=== PATIENT | male | born 1995 | race American Indian/Alaskan Native ===

== ENCOUNTER 2017-05-26 13:50 | Inpatient (IN) | payer OTHER ==
[2017-05-26 15:02] LABS: Anion Gap 14 mmol/L; BUN/Creatinine Ratio 14.28; Blood Urea Nitrogen 10 mg/dL (9-20); Calcium 8.5 mg/dL (8.4-10.2); Carbon Dioxide 23 mmol/L (22-30); Chloride 97.2 mmol/L (98-107); Glucose 115 mg/dL (75-100); Potassium 4.1 mmol/L (3.6-5.0); Sodium 130 mmol/L (137-145)
[2017-05-26 15:37] LABS: Red Blood Count 1.84 M/mm3 (3.65-5.03); White Blood Count 6.2 K/mm3 (4.5-11.0)
[2017-05-26 15:39] LABS: Hemoglobin 2.8 gm/dl (11.8-15.2)
[2017-05-26 15:42] LABS: Hematocrit 10.1 % (35.5-45.6); Mean Corpuscular HGB Conc 27 % (32-34); Mean Corpuscular Hemoglobin 15 pg (28-32); Mean Corpuscular Volume 55 fl (84-94)
[2017-05-26 15:43] LABS: Platelet Count 393 K/mm3 (140-440); Red Cell Distribution Width 21.8 % (13.2-15.2)
[2017-05-26] MEDS ORDERED: NACL 0.9% 500 ML 500 ML IV ONE ×2 (15:47→20:15)
[2017-05-26] MEDS ORDERED: NACL 0.9% 1000 ML 1,000 ML IV ONE (15:52)
--- NOTE | 2017-05-26 15:55 | Emergency Department Report ---
ED General Adult HPI - General Chief complaint: Rectal Pain Stated complaint: ANAL PAIN Time Seen by Provider: 05/26/17 15:48 Source: patient Mode of arrival: Ambulatory Limitations: No Limitations - History of Present Illness Initial comments: 22-year-old male with past medical history of HIV diagnosed when he was 17 and loss of follow-up, presents to the ED complaining of lower abdominal pain, anal pain, generalized weakness and fatigue. Patient states symptoms started approximately 1 week prior with anal pain with defecation. Patient denies anal bleeding. Patient denies appreciating anal masses. She states intermittently has a dull pain pelvic area that intermittent no relaxing or worsening factors. She also states he's been having generalized shortness of breath with exertion and generalized fatigue. Pertinent negatives: Fever/chills, chest pain , hemoptysis, nausea/vomiting/diarrhea, black stools, maroon stools, bloody stools. -: Gradual, week(s) (1) Location: abdomen Radiation: non-radiation Severity scale (0 -10): 4 Consistency: intermittent Improves with: none Worsens with: other (bowel movement ) Associated Symptoms: loss of appetite, malaise. denies: confusion, chest pain, cough, diaphoresis, nausea/vomiting, rash, seizure, shortness of breath, syncope - Related Data Home Medications Medication Instructions Recorded Confirmed Last Taken No Known Home Medications [No 05/26/17 05/26/17 Unknown Reported Home Medications] Allergies Allergy/AdvReac Type Severity Reaction Status Date / Time No Known Allergies Allergy Unverified 05/26/17 14:03 ED Review of Systems ROS: Stated complaint: ANAL PAIN Other details as noted in HPI Constitutional: malaise, weakness. denies: chills, fever Eyes: denies: eye pain, eye discharge, vision change ENT: denies: ear pain, throat pain Respiratory: denies: cough, shortness of breath, wheezing Cardiovascular: denies: chest pain, palpitations Endocrine: no symptoms reported Gastrointestinal: abdominal pain. denies: nausea, vomiting, diarrhea, constipation, hematemesis, hematochezia Genitourinary: denies: urgency, dysuria, frequency, hematuria, testicular pain, testicular mass Musculoskeletal: denies: back pain, joint swelling, arthralgia Skin: denies: rash, lesions Neurological: denies: headache, weakness, paresthesias Psychiatric: denies: anxiety, depression Hematological/Lymphatic: denies: easy bleeding, easy bruising ED Past Medical Hx - Past Medical History Previous Medical History?: Yes Hx HIV: Yes - Surgical History Past Surgical History?: No - Social History Smoking Status: Current Every Day Smoker Substance Use Type: Alcohol - Medications Home Medications: Home Medications Medication Instructions Recorded Confirmed Last Taken Type No Known Home Medications [No 05/26/17 05/26/17 Unknown History Reported Home Medications] ED Physical Exam - General Limitations: No Limitations ED Course Vital Signs 05/26/17 05/26/17 05/26/17 13:58 15:47 16:00 Temperature 98.8 F Pulse Rate 125 H 89 106 H Respiratory 16 14 14 Rate Blood Pressure 97/52 118/73 O2 Sat by Pulse 100 100 98 Oximetry 05/26/17 05/26/17 05/26/17 16:09 16:15 16:30 Temperature Pulse Rate 127 H 103 H Respiratory 16 18 16 Rate Blood Pressure 116/68 105/66 O2 Sat by Pulse 99 100 97 Oximetry 05/26/17 05/26/17 05/26/17 16:45 17:00 17:10 Temperature 98.7 F Pulse Rate 111 H 105 H 105 H Respiratory 20 19 16 Rate Blood Pressure 115/70 119/64 119/64 O2 Sat by Pulse 94 100 99 Oximetry 05/26/17 05/26/17 05/26/17 17:25 17:29 17:30 Temperature 98.7 F Pulse Rate 100 H 100 H Respiratory 18 18 16 Rate Blood Pressure 117/71 121/71 O2 Sat by Pulse 100 100 Oximetry 05/26/17 05/26/17 05/26/17 17:55 17:59 18:08 Temperature 98.6 F 98.6 F Pulse Rate 100 H 107 H Respiratory 13 13 13 Rate Blood Pressure 110/65 110/65 O2 Sat by Pulse 100 100 Oximetry 05/26/17 05/26/17 05/26/17 18:23 18:30 19:27 Temperature 98.5 F Pulse Rate 104 H 100 H Respiratory 16 20 Rate Blood Pressure 110/65 118/73 118/63 O2 Sat by Pulse 100 100 Oximetry 05/26/17 05/26/17 19:45 20:15 Temperature 98 F 98 F Pulse Rate 108 H 107 H Respiratory 20 18 Rate Blood Pressure 105/52 106/66 O2 Sat by Pulse 100 99 Oximetry - Reevaluation(s) Reevaluation #1: 05/26/17 15:55 Patient comfortable, getting 2 large bore IVs. Reevaluation #2: 05/26/17 17:10 Dr. Khoury gastroenterology states he'll see patient during his admission Reevaluation #3: 05/26/17 18:30 Patient resting with no complaints. Reevaluation #4: 05/26/17 20:08 GI doctor which hasn't consult given the reports of CT abdomen and pelvis. He is concerned that given patient's untreated HIV he may have Eduin Martinez in the duodenum. Differential also includes lymphoma, ulcer. He recommends IR consult- and he states he will call Dr Cary and IR group gen surgery - who I will call Reevaluation #5: 05/26/17 21:37 A oakes stable without any complaints. Dr. carlin has informed IR of patient, they are on an bifrontal embolization if needed. Dr. Peralta plans to scope patient ( upper endoscopy) in the a.m. ED Medical Decision Making - Lab Data Result diagrams: 05/26/17 15:18 05/26/17 14:30 - EKG Data -: EKG Interpreted by Me EKG shows normal: sinus rhythm (104), axis (normal ), intervals (ATC 433) Rate: normal - EKG Data When compared to previous EKG there are: previous EKG unavailable Interpretation: other (sinus tachycardia) - Medical Decision Making 22-year-old male with past medical history of HIV presented to the ED with anemia, tachycardia. 1) Anemia Clinically secondary GI bleed. Patient has been transfused packed red blood cells, and FFP. Patient's digital rectal exam had light brown stool that was guaiac positive. No hematochezia or maroon stools noted. Patient has told me that he remembers now that he has had similar symptoms in the past however they're unable to tell him what was the source of his bleed. Consults: GI Dr Licea who has seen pt in ED, Gen Surgery, IR - Differential Diagnosis perforated ulcer, IBD Critical care attestation.: If time is entered above; I have spent that time in minutes in the direct care of this critically ill patient, excluding procedure time. Critical Care Time: 60 min of cc spent at bedside spent talking to patient and consult ED Disposition Clinical Impression: GI bleeding, Tachycardia, Anemia Disposition: PAT REG,NO TRIAGE Is pt being admited?: Yes Does the pt Need Aspirin: No Condition: Stable Referrals: PRIMARY CARE,MD [Primary Care Provider] - 3-5 Days
[2017-05-26 16:47] LABS: INR 1.11 (0.87-1.13)
[2017-05-26 16:48] LABS: Partial Thromboplastin Time 28.1 Sec. (24.2-36.6)
[2017-05-26] MEDS ORDERED: ZOFRAN IV ONE (17:26)
[2017-05-26] MEDS ORDERED: MORPHINE IV ONE (17:26)
[2017-05-26] MEDS ORDERED: ZOFRAN ONE (17:27)
[2017-05-26 17:28] LABS: Blastocytes % (Manual) 0 %
[2017-05-26 17:29] LABS: Anisocytosis 2+; Basophils % (Manual) 0 % (0.0-1.8); Eosinophils % (Manual) 0 % (0.0-4.3); Microcytosis 3+
[2017-05-26 17:30] LABS: Hypochromasia 3+; Ovalocytes 1+; Polychromasia Few
[2017-05-26 17:31] LABS: Giant Platelets Few; Large Platelets Few; Platelet Estimate Consistent w Auto; Target Cells Few
[2017-05-26 17:33] LABS: Diff Status Complete
[2017-05-26] MEDS ORDERED: NACL ONE (18:05)
--- NOTE | 2017-05-26 18:48 | Admit Criteria Form ---
Admission Criteria Documentation: ANEMIA, IRON DEFICIENCY OR UNSPECIFIED Clinical Indications for Inpatient Care (Place 'X' for any and all applicable criteria): Admission is indicated for ANY ONE of the following(1)(2)(3)(4)(5)(6)(7): [X] I. Inpatient admission required rather than observation care (Also use Anemia, Iron Deficiency or Unspecified: Observation Care guideline as appropriate) because of ANY ONE of the following: [] a) Hemodynamic instability that is severe or persistent [] b) Active bleeding that cannot be rapidly controlled [] c) CVS symptoms (i.e., dyspnea, chest pain, heart failure) that are severe or persistent [] d) Neurologic symptoms (i.e., cognitive impairment, recurrent syncope or near syncope) that are severe or persistent [] e) Cardiac arrhythmias of immediate concern [] f) Acute peripheral ischemia (e.g., pulseless, cool, mottled, or cyanotic extremity) [] g) High-risk low platelet count [] h) Acute renal failure [X] i) Ongoing transfusion for blood loss (greater than 2 units) [] j) IV fluid to replace significant ongoing (eg, >24 hours) losses (> 3 L/m2 per day) [] k) Pulmonary artery catheter monitoring [] l) Supplemental oxygen or respiratory treatments for over 24 hours that are performable only in acute inpatient setting [] m) Immediate inpatient surgery [X] n) Other condition, treatment or monitoring requiring inpatient admission [] II Active massive hemorrhage [] III. Active hemolysis with rapidly progressive anemia [A](6) Extended stay beyond goal length of stay may be needed for (17)(18) []a) Diagnosed cause of anemia requiring longer hospitalization (eg, active GI bleeding, immune hemolysis requiring electrophoresis, complications of malignancy requiring acute care []b) Continued emergent anemia indicators (23) []c) Transfusion reactions []d) Associated leukopenia or thrombocytopenia needing inpatient care []e) Active comorbidities (eg, renal failure, heart failure) The original [facility] Care Guidelines content created by [facility] Guidelines has been revised. The portions of the content which have been revised are identified through the use of italic text or in bold. [facility] has neither reviewed nor approved the modified material. All other unmodified content is copyright [facility] Guidelines. Please see references footnoted in the original [facility] edition 2016 Admission Criteria Met: Yes
--- NOTE | 2017-05-26 19:56 | Cat Scan Report ---
FINAL REPORT EXAM: CT ABDOMEN PELVIS W CON HISTORY: pelvic and anal pain , HIV positive TECHNIQUE: CT images are acquired through the Abdomen and Pelvis in arterial and delayed venous phases following intravenous administration of contrast. Transaxial, coronal and sagittal reformations are provided. PRIORS: None FINDINGS: Partially visualized intrathoracic contents are unremarkable. The liver, gallbladder, pancreas, spleen, and adrenal glands are normal. Kidneys show no worrisome lesions, hydronephrosis, or calculi. Urinary bladder is unremarkable. Appendix is normal on axial series 3, images 108-113. Trace pelvic ascites. No pneumoperitoneum. Intraluminal contrast extravasation or is present in the small bowel on axial series 3, image 100. Contrast is less intense/dissipated on delayed excretory images axial series 4, images 36-39. Central abdominal dilated loops of small bowel. No transition point to suggest mechanical obstruction. Perirectal lymphadenopathy is present on axial series 2, images 299-314. Mesenteric lymphadenopathy on coronal series 203, images 69-76. Small bowel is diffusely fluid-filled. Aorta is normal in course and caliber. Superficial soft tissues are unremarkable. No acute or aggressive appearing skeletal findings. IMPRESSION: Jejunal hemorrhage is suggested on the basis of intraluminal contrast extravasation. Additionally, the patient has mesenteric and perirectal lymphadenopathy, which may be secondary to infection, a lymphoproliferative disorder or superimposed inflammatory bowel disease. Dr. Hearn discussed findings with Dr. Busby at [address] [employer] following the examination.
[2017-05-26 20:03] LABS: Bacteria,Urine 1+ /HPF (Negative); Bilirubin,Urine NEG (Negative); Blood,Urine NEG (Negative); Ketones,Urine NEG (Negative); Leukocyte Esterase,Urine NEG (Negative); Mucus,Urine FEW /HPF; Nitrite,Urine NEG (Negative); Protein,Urine <15 mg/dL mg/dL (Negative); Urobilinogen,Urine < 2.0 mg/dL (<2.0); WBC,Urine < 1.0 /HPF (0.0-6.0)
[2017-05-26] MEDS ORDERED: PROTONIX PO ONE (21:51)
--- NOTE | 2017-05-26 21:59 | Event Note ---
Date: 05/26/17 See dictated Consult; Likely vascular lesion in jejunum with intermittent bleed. KS or lymphoma high on differential. Unrelated to HIV, vascular malformation also possible.
[2017-05-26] MEDS: PROTONIX PO SCH (22:00)
[2017-05-26] MEDS ORDERED: NACL 0.9% 500 ML 500 ML ONE (22:17)
[2017-05-26] MEDS: PEPCID IV SCH (23:45)
[2017-05-26] MEDS ORDERED: TYLENOL PO PRN (23:54)
[2017-05-26] MEDS ORDERED: ZOFRAN IV PRN (23:54)
[2017-05-26] MEDS ORDERED: DULCOLAX PR PRN (23:54)
[2017-05-26] MEDS ORDERED: MILK OF MAGNESIA PO PRN (23:54)
--- NOTE | 2017-05-26 23:57 | History and Physical Report ---
History of Present Illness Date of examination: 05/26/17 Date of admission: 05/26/17 Chief complaint: Severe weakness for one week History of present illness: - History of Present Illness Initial comments: 22-year-old male with past medical history of HIV diagnosed when he was 17 noncompliant with follow-up not taking any antiretrovirals, presents to the ED complaining of lower abdominal pain, anal pain, generalized weakness and fatigue. Patient states symptoms started approximately 1 week prior with anal pain with defecation. Patient denies anal bleeding. Patient denies appreciating anal masses. She states intermittently has a dull pain pelvic area that intermittent no relaxing or worsening factors. She also states he's been having generalized shortness of breath with exertion and generalized fatigue. Pertinent negatives: Fever/chills, chest pain, hemoptysis, nausea/ vomiting/diarrhea, black stools, maroon stools, bloody stools. -: Gradual, week(s) (1) Location: abdomen Radiation: non-radiation Severity scale (0 -10): 4 Consistency: intermittent Improves with: none Worsens with: other (bowel movement ) Associated Symptoms: loss of appetite, malaise. denies: confusion, chest pain, cough, diaphoresis, nausea/vomiting, rash, seizure, shortness of breath, syncope - Related Data Home Medications Medication Instructions Recorded Confirmed Last Taken No Known Home Medications [No 05/26/17 05/26/17 Unknown Reported Home Medications] Allergies Allergy/AdvReac Type Severity Reaction Status Date / Time No Known Allergies Allergy Unverified 05/26/17 14:03 ED Past Medical Hx - Past Medical History Previous Medical History?: Yes Hx HIV: Yes - Surgical History Past Surgical History?: No - Social History Smoking Status: Current Every Day Smoker Substance Use Type: Alcohol - Medications Home Medications: Home Medications Medication Instructions Recorded Confirmed Last Taken Type No Known Home Medications [No 05/26/17 05/26/17 Unknown History Reported Home Medications] ROS: Stated complaint: ANAL PAIN Other details as noted in HPI Constitutional: malaise, weakness. denies: chills, fever Eyes: denies: eye pain, eye discharge, vision change ENT: denies: ear pain, throat pain Respiratory: denies: cough, shortness of breath, wheezing Cardiovascular: denies: chest pain, palpitations Endocrine: no symptoms reported Gastrointestinal: abdominal pain. denies: nausea, vomiting, diarrhea, constipation, hematemesis, hematochezia Genitourinary: denies: urgency, dysuria, frequency, hematuria, testicular pain, testicular mass Musculoskeletal: denies: back pain, joint swelling, arthralgia Skin: denies: rash, lesions Neurological: denies: headache, weakness, paresthesias Psychiatric: denies: anxiety, depression Hematological/Lymphatic: denies: easy bleeding, easy bruising Past History Past Medical History: GERD, HIV/AIDS Medications and Allergies Allergies Allergy/AdvReac Type Severity Reaction Status Date / Time No Known Allergies Allergy Unverified 05/26/17 14:03 Home Medications Medication Instructions Recorded Confirmed Last Taken Type No Known Home Medications [No 05/26/17 05/26/17 Unknown History Reported Home Medications] Active Meds: Active Medications Multivitamins/Minerals (Theragran-M Tab) 1 each PO QDAY ANGEL LUIS Pantoprazole (Protonix) 40 mg PO QDAY ANGEL LUIS Last Admin: 05/26/17 22:00 Dose: 40 mg Exam - Physical Exam Narrative exam: Lying in bed comfortably in no distress - Constitutional Vitals: Temp Pulse Resp BP Pulse Ox 98.4 F 105 H 18 116/65 100 05/26/17 23:14 05/26/17 23:14 05/26/17 23:14 05/26/17 23:14 05/26/17 23:14 General appearance: Present: no acute distress, well-nourished - EENT Eyes: Present: PERRL ENT: hearing intact, clear oral mucosa, other (pale tongue and conjunctiva) - Neck Neck: Present: supple, normal ROM - Respiratory Respiratory effort: normal Respiratory: bilateral: CTA - Cardiovascular Heart Sounds: Present: S1 & S2. Absent: rub, click - Extremities Extremities: pulses symmetrical, No edema Peripheral Pulses: within normal limits - Abdominal General gastrointestinal: Present: soft, non-tender, non-distended, normal bowel sounds Male genitourinary: Present: normal - Integumentary Integumentary: Present: clear, warm, dry - Musculoskeletal Musculoskeletal: gait normal, strength equal bilaterally - Psychiatric Psychiatric: appropriate mood/affect, intact judgment & insight - Neurologic Neurologic: CNII-XII intact, moves all extremities Results - Labs CBC & Chem 7: 05/27/17 04:46 05/27/17 04:46 Labs: Laboratory Last Values WBC 6.2 K/mm3 (4.5-11.0) 05/26/17 15:18 RBC 1.84 M/mm3 (3.65-5.03) L 05/26/17 15:18 Hgb 2.8 gm/dl (11.8-15.2) L* 05/26/17 15:18 Hct 10.1 % (35.5-45.6) L* 05/26/17 15:18 MCV 55 fl (84-94) L 05/26/17 15:18 MCH 15 pg (28-32) L 05/26/17 15:18 MCHC 27 % (32-34) L 05/26/17 15:18 RDW 21.8 % (13.2-15.2) H 05/26/17 15:18 Plt Count 393 K/mm3 (140-440) 05/26/17 15:18 Add Manual Diff Complete 05/26/17 15:18 Total Counted 100 05/26/17 15:18 Seg Neuts % (Manual) 62.0 % (40.0-70.0) 05/26/17 15:18 Band Neutrophils % 16.0 % 05/26/17 15:18 Lymphocytes % (Manual) 19.0 % (13.4-35.0) 05/26/17 15:18 Reactive Lymphs % (Man) 0 % 05/26/17 15:18 Monocytes % (Manual) 3.0 % (0.0-7.3) 05/26/17 15:18 Eosinophils % (Manual) 0 % (0.0-4.3) 05/26/17 15:18 Basophils % (Manual) 0 % (0.0-1.8) 05/26/17 15:18 Metamyelocytes % 0 % 05/26/17 15:18 Myelocytes % 0 % 05/26/17 15:18 Promyelocytes % 0 % 05/26/17 15:18 Blast Cells % 0 % 05/26/17 15:18 Nucleated RBC % Not Reportable 05/26/17 15:18 Seg Neutrophils # Man 3.8 K/mm3 (1.8-7.7) 05/26/17 15:18 Band Neutrophils # 1.0 K/mm3 05/26/17 15:18 Lymphocytes # (Manual) 1.2 K/mm3 (1.2-5.4) 05/26/17 15:18 Abs React Lymphs (Man) 0.0 K/mm3 05/26/17 15:18 Monocytes # (Manual) 0.2 K/mm3 (0.0-0.8) 05/26/17 15:18 Eosinophils # (Manual) 0.0 K/mm3 (0.0-0.4) 05/26/17 15:18 Basophils # (Manual) 0.0 K/mm3 (0.0-0.1) 05/26/17 15:18 Metamyelocytes # 0.0 K/mm3 05/26/17 15:18 Myelocytes # 0.0 K/mm3 05/26/17 15:18 Promyelocytes # 0.0 K/mm3 05/26/17 15:18 Blast Cells # 0.0 K/mm3 05/26/17 15:18 WBC Morphology Not Reportable 05/26/17 15:18 Hypersegmented Neuts Not Reportable 05/26/17 15:18 Hyposegmented Neuts Not Reportable 05/26/17 15:18 Hypogranular Neuts Not Reportable 05/26/17 15:18 Smudge Cells Not Reportable 05/26/17 15:18 Toxic Granulation Not Reportable 05/26/17 15:18 Toxic Vacuolation Not Reportable 05/26/17 15:18 Dohle Bodies Not Reportable 05/26/17 15:18 Pelger-Huet Anomaly Not Reportable 05/26/17 15:18 Cecelia Rods Not Reportable 05/26/17 15:18 Platelet Estimate Consistent w auto 05/26/17 15:18 Clumped Platelets Not Reportable 05/26/17 15:18 Plt Clumps, EDTA Not Reportable 05/26/17 15:18 Large Platelets Few 05/26/17 15:18 Giant Platelets Few 05/26/17 15:18 Platelet Satelliting Not Reportable 05/26/17 15:18 Plt Morphology Comment Not Reportable 05/26/17 15:18 RBC Morphology Not Reportable 05/26/17 15:18 Dimorphic RBCs Not Reportable 05/26/17 15:18 Polychromasia Few 05/26/17 15:18 Hypochromasia 3+ 05/26/17 15:18 Poikilocytosis Not Reportable 05/26/17 15:18 Anisocytosis 2+ 05/26/17 15:18 Microcytosis 3+ 05/26/17 15:18 Macrocytosis Not Reportable 05/26/17 15:18 Spherocytes Not Reportable 05/26/17 15:18 Pappenheimer Bodies Not Reportable 05/26/17 15:18 Sickle Cells Not Reportable 05/26/17 15:18 Target Cells Few 05/26/17 15:18 Tear Drop Cells Not Reportable 05/26/17 15:18 Ovalocytes 1+ 05/26/17 15:18 Helmet Cells Not Reportable 05/26/17 15:18 [place] Bodies Not Reportable 05/26/17 15:18 [place] Rings Not Reportable 05/26/17 15:18 [place] Cells Not Reportable 05/26/17 15:18 Bite Cells Not Reportable 05/26/17 15:18 Crenated Cell Not Reportable 05/26/17 15:18 Elliptocytes Not Reportable 05/26/17 15:18 Acanthocytes (Spur) Not Reportable 05/26/17 15:18 Rouleaux Not Reportable 05/26/17 15:18 Hemoglobin C Crystals Not Reportable 05/26/17 15:18 Schistocytes Not Reportable 05/26/17 15:18 Malaria parasites Not Reportable 05/26/17 15:18 [place] Bodies Not Reportable 05/26/17 15:18 Hem Pathologist Commnt No 05/26/17 15:18 PT 14.9 Sec. (12.2-14.9) 05/26/17 16:23 INR 1.11 (0.87-1.13) 05/26/17 16:23 APTT 28.1 Sec. (24.2-36.6) 05/26/17 16:23 Sodium 130 mmol/L (137-145) L 05/26/17 14:30 Potassium 4.1 mmol/L (3.6-5.0) 05/26/17 14:30 Chloride 97.2 mmol/L (98-107) L 05/26/17 14:30 Carbon Dioxide 23 mmol/L (22-30) 05/26/17 14:30 Anion Gap 14 mmol/L 05/26/17 14:30 BUN 10 mg/dL (9-20) 05/26/17 14:30 Creatinine 0.7 mg/dL (0.8-1.5) L 05/26/17 14:30 Estimated GFR > 60 ml/min 05/26/17 14:30 BUN/Creatinine Ratio 14.28 % 05/26/17 14:30 Glucose 115 mg/dL (75-100) H 05/26/17 14:30 Calcium 8.5 mg/dL (8.4-10.2) 05/26/17 14:30 Urine Color Yellow (Yellow) 05/26/17 19:47 Urine Turbidity Clear (Clear) 05/26/17 19:47 Urine pH 5.0 (5.0-7.0) 05/26/17 19:47 Ur Specific [place] 1.035 (1.003-1.030) H 05/26/17 19:47 Urine Protein <15 mg/dl mg/dL (Negative) 05/26/17 19:47 Urine Glucose (UA) Neg mg/dL (Negative) 05/26/17 19:47 Urine Ketones Neg mg/dL (Negative) 05/26/17 19:47 Urine Blood Neg (Negative) 05/26/17 19:47 Urine Nitrite Neg (Negative) 05/26/17 19:47 Urine Bilirubin Neg (Negative) 05/26/17 19:47 Urine Urobilinogen < 2.0 mg/dL (<2.0) 05/26/17 19:47 Ur Leukocyte Esterase Neg (Negative) 05/26/17 19:47 Urine WBC (Auto) < 1.0 /HPF (0.0-6.0) 05/26/17 19:47 Urine RBC (Auto) 4.0 /HPF (0.0-6.0) 05/26/17 19:47 U Epithel Cells (Auto) < 1.0 /HPF (0-13.0) 05/26/17 19:47 Urine Bacteria (Auto) 1+ /HPF (Negative) 05/26/17 19:47 Urine Mucus Few /HPF 05/26/17 19:47 Blood Type O POSITIVE 05/26/17 16:05 Antibody Screen TNR 05/26/17 16:05 NESSA Antibody Screen Negative 05/26/17 16:05 Crossmatch See Detail 05/26/17 16:05 Short CBC 05/26/17 Range/Units 15:18 WBC 6.2 (4.5-11.0) K/mm3 Hgb 2.8 L* (11.8-15.2) gm/dl Hct 10.1 L* (35.5-45.6) % Plt Count 393 (140-440) K/mm3 [facility] 05/26/17 14:30 Sodium 130 L Potassium 4.1 Chloride 97.2 L Carbon Dioxide 23 BUN 10 Creatinine 0.7 L Glucose 115 H Calcium 8.5 Urine 05/26/17 Range/Units 19:47 Urine Color Yellow (Yellow) Urine pH 5.0 (5.0-7.0) Ur Specific [place] 1.035 H (1.003-1.030) Urine Protein <15 mg/dl (Negative) mg/dL Urine Glucose (UA) Neg (Negative) mg/dL Short CBC 05/26/17 05/27/17 Range/Units 15:18 04:46 WBC 6.2 6.2 (4.5-11.0) K/mm3 Hgb 2.8 L* 4.3 L* (11.8-15.2) gm/dl Hct 10.1 L* 13.1 L* (35.5-45.6) % Plt Count 393 216 (140-440) K/mm3 [facility] 05/26/17 05/27/17 14:30 04:46 Sodium 130 L 136 L Potassium 4.1 4.4 Chloride 97.2 L 106.6 Carbon Dioxide 23 22 BUN 10 15 Creatinine 0.7 L 0.6 L Glucose 115 H 108 H Calcium 8.5 7.7 L Liver Function 05/27/17 Range/Units 04:46 Total Bilirubin 0.40 (0.1-1.2) mg/dL AST 19 (5-40) units/L ALT 10 (7-56) units/L Alkaline Phosphatase 41 (35-129) units/L Albumin 2.0 L (3.9-5) g/dL Urine 05/26/17 Range/Units 19:47 Urine Color Yellow (Yellow) Urine pH 5.0 (5.0-7.0) Ur Specific [place] 1.035 H (1.003-1.030) Urine Protein <15 mg/dl (Negative) mg/dL Urine Glucose (UA) Neg (Negative) mg/dL - Imaging and Cardiology CT scan - abdomen: report reviewed (jejunal hemorrhages suggested on the basis of intraluminal contrast extravasation. Patient also has mesenteric and peritoneal rectal lymphadenopathy) Assessment and Plan Assessment and plan: The high probability OF a clinically significant sudden or life-threatening deterioration of the cardiorespiratory system and endocrine system required my full and direct attention, intervention and postoperative management. The aggregate medical care time was 33 minutes. The time is in addition to time spent performing reported procedures but includes the followin: Data review and interpretation 2: Patient assessment and monitoring of vital signs 3: Documentation 4:: Medication orders and management Advance Directives: Yes (full code) VTE prophylaxis?: Mechanical Plan of care discussed with patient/family: Yes - Patient Problems (1) Acute blood loss anemia Current Visit: Yes Status: Acute Plan to address problem: Patient has severe anemia with hemoglobin of around 2.8. Patient needs to be transfused 4-6 units of packed red blood cells. Monitor H&H frequently. GI consult and surgical consult requested. IV Protonix initiated. (2) GI bleeding Current Visit: Yes Status: Acute Qualifiers: GI bleed type/associated pathology: G Gastritis type: G Plan to address problem: Possible jejunal hemorrhage. IV Protonix and for up to 4 units of packed blood cells to be transfused. No black tarry stools are present. Patient is a poor historian. (3) HIV (human immunodeficiency virus infection) Current Visit: Yes Status: Chronic Plan to address problem: ID consult requested but patient needs to follow up as outpatient and that his antiretrovirals. Patient counseled and patient to be counseled again at the time of discharge (4) DVT prophylaxis Current Visit: Yes Status: Acute Plan to address problem: On the SCDs
[2017-05-27] MEDS: DILAUDID IV PRN ×2 (01:00→19:34)
[2017-05-27] MEDS ORDERED: DILAUDID ONE (01:17)
[2017-05-27] MEDS ORDERED: PEPCID IV ONE (01:17)
[2017-05-27] MEDS: D5NS 1,000 ML IV SCH (01:50)
[2017-05-27] MEDS: PROTONIX 80 MG in NACL 0.9% 100 ML IV SCH ×2 (02:49→13:00)
[2017-05-27 05:29] LABS: Mean Corpuscular HGB Conc 33 % (32-34); Mean Corpuscular Volume 72 fl (84-94); Platelet Count 216 K/mm3 (140-440); Red Blood Count 1.84 M/mm3 (3.65-5.03); White Blood Count 6.2 K/mm3 (4.5-11.0)
[2017-05-27 05:35] LABS: Hematocrit 13.1 % (35.5-45.6); Hemoglobin 4.3 gm/dl (11.8-15.2); Mean Corpuscular Hemoglobin 23 pg (28-32); Red Cell Distribution Width 30.3 % (13.2-15.2)
[2017-05-27 05:38] LABS: Alanine Aminotransferase 10 units/L (7-56); Albumin/Globulin Ratio 0.4 %; Alkaline Phosphatase 41 units/L (35-129); Anion Gap 12 mmol/L; Blood Urea Nitrogen 15 mg/dL (9-20); Calcium 7.7 mg/dL (8.4-10.2); Carbon Dioxide 22 mmol/L (22-30); Chloride 106.6 mmol/L (98-107); Glucose 108 mg/dL (75-100); Potassium 4.4 mmol/L (3.6-5.0); Sodium 136 mmol/L (137-145); Total Protein 7.6 g/dL (6.3-8.2)
[2017-05-27 06:11] LABS: Blastocytes % (Manual) 0 %
[2017-05-27 06:12] LABS: Anisocytosis 3+; Giant Platelets Rare; Hypochromasia 1+; Target Cells Few; Tear Drop Cells Rare
[2017-05-27 06:13] LABS: Diff Status Complete
[2017-05-27] MEDS ORDERED: NACL 0.9% 500 ML 500 ML IV ONE (07:53)
--- NOTE | 2017-05-27 08:59 | Progress Note ---
Assessment and Plan Assessment and plan: Acute GI bleed. Initial hemoglobin was 2.8. Now 4.3 after 4 units PRBC. Will transfuse 4 units PRBC more. Discussed with interventional radiologist. Patient may go for embolization today. Anemia due to acute blood loss. Ongoing PRBC transfusion HIV. He is noncompliant. To follow as an outpatient. DVT prophylaxis with SCDs only because of acute bleed Full CODE STATUS History Interval history: Patient with GI bleed Still bloody stools Hospitalist Physical - Physical exam Narrative exam: Gen Appearance: No acute distress, HEENT: normocephalic, atraumatic Neck: supple, no JVD Lungs: Clear to auscultation bilaterally, no rales or wheeze Heart: S1 and S2 regular, no murmurs or gallop Abdomen: Soft non-tender, non-distended, normal bowel sounds Extremity:No edema, clubbing or cyanosis Neuro : Awake, alert, oriented x 3, moves all extremities - Constitutional Vitals: Temp Pulse Resp BP Pulse Ox 98.5 F 88 12 103/54 100 05/27/17 08:00 05/27/17 06:10 05/27/17 06:10 05/27/17 06:00 05/27/17 06:10 General appearance: Present: no acute distress, well-nourished Results - Labs CBC & Chem 7: 05/27/17 04:46 05/27/17 04:46 Labs: Laboratory Last Values WBC 6.2 K/mm3 (4.5-11.0) 05/27/17 04:46 RBC 1.84 M/mm3 (3.65-5.03) L 05/27/17 04:46 Hgb 4.3 gm/dl (11.8-15.2) L* 05/27/17 04:46 Hct 13.1 % (35.5-45.6) L* 05/27/17 04:46 MCV 72 fl (84-94) L D 05/27/17 04:46 MCH 23 pg (28-32) L 05/27/17 04:46 MCHC 33 % (32-34) 05/27/17 04:46 RDW 30.3 % (13.2-15.2) H 05/27/17 04:46 Plt Count 216 K/mm3 (140-440) 05/27/17 04:46 Add Manual Diff Complete 05/27/17 04:46 Total Counted 100 05/27/17 04:46 Seg Neuts % (Manual) 77.0 % (40.0-70.0) H 05/27/17 04:46 Band Neutrophils % 0 % 05/27/17 04:46 Lymphocytes % (Manual) 17.0 % (13.4-35.0) 05/27/17 04:46 Reactive Lymphs % (Man) 0 % 05/27/17 04:46 Monocytes % (Manual) 5.0 % (0.0-7.3) 05/27/17 04:46 Eosinophils % (Manual) 0 % (0.0-4.3) 05/26/17 15:18 Basophils % (Manual) 1.0 % (0.0-1.8) 05/27/17 04:46 Metamyelocytes % 0 % 05/27/17 04:46 Myelocytes % 0 % 05/27/17 04:46 Promyelocytes % 0 % 05/27/17 04:46 Blast Cells % 0 % 05/27/17 04:46 Nucleated RBC % 1.0 % (0.0-0.9) H 05/27/17 04:46 Seg Neutrophils # Man 4.8 K/mm3 (1.8-7.7) 05/27/17 04:46 Band Neutrophils # 0.0 K/mm3 05/27/17 04:46 Lymphocytes # (Manual) 1.1 K/mm3 (1.2-5.4) L 05/27/17 04:46 Abs React Lymphs (Man) 0.0 K/mm3 05/27/17 04:46 Monocytes # (Manual) 0.3 K/mm3 (0.0-0.8) 05/27/17 04:46 Eosinophils # (Manual) 0.0 K/mm3 (0.0-0.4) 05/27/17 04:46 Basophils # (Manual) 0.1 K/mm3 (0.0-0.1) 05/27/17 04:46 Metamyelocytes # 0.0 K/mm3 05/27/17 04:46 Myelocytes # 0.0 K/mm3 05/27/17 04:46 Promyelocytes # 0.0 K/mm3 05/27/17 04:46 Blast Cells # 0.0 K/mm3 05/27/17 04:46 WBC Morphology Not Reportable 05/27/17 04:46 Hypersegmented Neuts Not Reportable 05/27/17 04:46 Hyposegmented Neuts Not Reportable 05/27/17 04:46 Hypogranular Neuts Not Reportable 05/27/17 04:46 Smudge Cells Not Reportable 05/27/17 04:46 Toxic Granulation Not Reportable 05/27/17 04:46 Toxic Vacuolation Not Reportable 05/27/17 04:46 Dohle Bodies Not Reportable 05/27/17 04:46 Pelger-Huet Anomaly Not Reportable 05/27/17 04:46 Cecelia Rods Not Reportable 05/27/17 04:46 Platelet Estimate Appears normal 05/27/17 04:46 Clumped Platelets Not Reportable 05/27/17 04:46 Plt Clumps, EDTA Not Reportable 05/27/17 04:46 Large Platelets Not Reportable 05/27/17 04:46 Giant Platelets Rare 05/27/17 04:46 Platelet Satelliting Not Reportable 05/27/17 04:46 Plt Morphology Comment Not Reportable 05/27/17 04:46 RBC Morphology Not Reportable 05/27/17 04:46 Dimorphic RBCs Not Reportable 05/27/17 04:46 Polychromasia Not Reportable 05/27/17 04:46 Hypochromasia 1+ 05/27/17 04:46 Poikilocytosis Not Reportable 05/27/17 04:46 Anisocytosis 3+ 05/27/17 04:46 Microcytosis Not Reportable 05/27/17 04:46 Macrocytosis Not Reportable 05/27/17 04:46 Spherocytes Not Reportable 05/27/17 04:46 Pappenheimer Bodies Not Reportable 05/27/17 04:46 Sickle Cells Not Reportable 05/27/17 04:46 Target Cells Few 05/27/17 04:46 Tear Drop Cells Rare 05/27/17 04:46 Ovalocytes Not Reportable 05/27/17 04:46 Helmet Cells Not Reportable 05/27/17 04:46 [place] Bodies Not Reportable 05/27/17 04:46 [place] Rings Not Reportable 05/27/17 04:46 [place] Cells Not Reportable 05/27/17 04:46 Bite Cells Not Reportable 05/27/17 04:46 Crenated Cell Not Reportable 05/27/17 04:46 Elliptocytes Not Reportable 05/27/17 04:46 Acanthocytes (Spur) Not Reportable 05/27/17 04:46 Rouleaux Not Reportable 05/27/17 04:46 Hemoglobin C Crystals Not Reportable 05/27/17 04:46 Schistocytes Not Reportable 05/27/17 04:46 Malaria parasites Not Reportable 05/27/17 04:46 [place] Bodies Not Reportable 05/27/17 04:46 Hem Pathologist Commnt No 05/27/17 04:46 PT 14.9 Sec. (12.2-14.9) 05/26/17 16:23 INR 1.11 (0.87-1.13) 05/26/17 16:23 APTT 28.1 Sec. (24.2-36.6) 05/26/17 16:23 Sodium 136 mmol/L (137-145) L 05/27/17 04:46 Potassium 4.4 mmol/L (3.6-5.0) 05/27/17 04:46 Chloride 106.6 mmol/L (98-107) 05/27/17 04:46 Carbon Dioxide 22 mmol/L (22-30) 05/27/17 04:46 Anion Gap 12 mmol/L 05/27/17 04:46 BUN 15 mg/dL (9-20) 05/27/17 04:46 Creatinine 0.6 mg/dL (0.8-1.5) L 05/27/17 04:46 Estimated GFR > 60 ml/min 05/27/17 04:46 BUN/Creatinine Ratio 25.00 % 05/27/17 04:46 Glucose 108 mg/dL (75-100) H 05/27/17 04:46 Calcium 7.7 mg/dL (8.4-10.2) L 05/27/17 04:46 Total Bilirubin 0.40 mg/dL (0.1-1.2) 05/27/17 04:46 AST 19 units/L (5-40) 05/27/17 04:46 ALT 10 units/L (7-56) 05/27/17 04:46 Alkaline Phosphatase 41 units/L (35-129) 05/27/17 04:46 Total Protein 7.6 g/dL (6.3-8.2) 05/27/17 04:46 Albumin 2.0 g/dL (3.9-5) L 05/27/17 04:46 Albumin/Globulin Ratio 0.4 % 05/27/17 04:46 Urine Color Yellow (Yellow) 05/26/17 19:47 Urine Turbidity Clear (Clear) 05/26/17 19:47 Urine pH 5.0 (5.0-7.0) 05/26/17 19:47 Ur Specific [place] 1.035 (1.003-1.030) H 05/26/17 19:47 Urine Protein <15 mg/dl mg/dL (Negative) 05/26/17 19:47 Urine Glucose (UA) Neg mg/dL (Negative) 05/26/17 19:47 Urine Ketones Neg mg/dL (Negative) 05/26/17 19:47 Urine Blood Neg (Negative) 05/26/17 19:47 Urine Nitrite Neg (Negative) 05/26/17 19:47 Urine Bilirubin Neg (Negative) 05/26/17 19:47 Urine Urobilinogen < 2.0 mg/dL (<2.0) 05/26/17 19:47 Ur Leukocyte Esterase Neg (Negative) 05/26/17 19:47 Urine WBC (Auto) < 1.0 /HPF (0.0-6.0) 05/26/17 19:47 Urine RBC (Auto) 4.0 /HPF (0.0-6.0) 05/26/17 19:47 U Epithel Cells (Auto) < 1.0 /HPF (0-13.0) 05/26/17 19:47 Urine Bacteria (Auto) 1+ /HPF (Negative) 05/26/17 19:47 Urine Mucus Few /HPF 05/26/17 19:47 Blood Type O POSITIVE 05/26/17 16:05 Antibody Screen TNR 05/26/17 16:05 NESSA Antibody Screen Negative 05/26/17 16:05 Crossmatch See Detail 05/26/17 16:05
[2017-05-27] MEDS ORDERED: FLUSH HEPARIN IV ONE (09:15)
[2017-05-27] MEDS ORDERED: NACL ONE (09:59)
--- NOTE | 2017-05-27 10:50 | Consultation ---
History of Present Illness - Reason for Consult Consult date: 05/27/17 - History of Present Illness This is a 22 year old HIV positive male seen in consult for GI bleeding. He came to the ER for "rectal pain and swelling" but reported that he had also been feeling fatigued and lethargic for several days. His Hb was found to be 3 on admission despite normal hemodynamics. CT revealed a large contrast blush in the mid small bowel, likely jejunum. He states he had one blood stool yesterday and one today. He is currently not on any HIV therapy and is unaware of his Tcell count. He moved here recently from [place]. At [facility] in January 2017 he underwent upper and lower endoscopy and CT for LGIB at that time. No source was found during that evaluation. Past History Past Medical History: GERD, HIV/AIDS Medications and Allergies Allergies Allergy/AdvReac Type Severity Reaction Status Date / Time No Known Allergies Allergy Unverified 05/26/17 14:03 Home Medications Medication Instructions Recorded Confirmed Last Taken Type No Known Home Medications [No 05/26/17 05/26/17 Unknown History Reported Home Medications] Active Meds: Active Medications Acetaminophen (Tylenol) 650 mg PO Q4H PRN PRN Reason: Pain MILD(1-3)/Fever >100.5/EMERY Bisacodyl (Dulcolax) 10 mg [place] QDAY PRN PRN Reason: Constipation unrelieved by MOM Famotidine (Pepcid) 20 mg IV BID [facility] Last Admin: 05/26/17 23:45 Dose: 20 mg Hydromorphone HCl (Dilaudid) 0.5 mg IV Q3H PRN PRN Reason: Pain , Severe (7-10) Last Admin: 05/27/17 01:00 Dose: 0.5 mg Dextrose/Sodium Chloride (D5ns) 1,000 mls @ 75 mls/hr IV DIRECT ANGEL LUIS Last Admin: 05/27/17 01:50 Dose: 75 mls/hr Pantoprazole Sodium 80 mg/ (Sodium Chloride) 100 mls @ 10 mls/hr IV Q10H ANGEL LUIS PRN Reason: 8 MG/HR Last Admin: 05/27/17 02:49 Dose: 8 mg/hr, 10 mls/hr Magnesium Hydroxide (Milk Of Magnesia) 30 ml PO Q4H PRN PRN Reason: Constipation Multivitamins/Minerals (Theragran-M Tab) 1 each PO QDAY [facility] Ondansetron HCl (Zofran) 4 mg IV Q8H PRN PRN Reason: N/V unrelieved by Chaya Pantoprazole (Protonix) 40 mg PO QDAY [facility] Last Admin: 05/26/17 22:00 Dose: 40 mg Exam - Constitutional Vitals: Temp Pulse Resp BP Pulse Ox 98.5 F 88 12 103/54 100 05/27/17 08:00 05/27/17 06:10 05/27/17 06:10 05/27/17 06:00 05/27/17 06:10 General appearance: Present: no acute distress - EENT Eyes: Present: PERRL ENT: hearing intact - Respiratory Respiratory effort: normal - Extremities Extremities: pulses symmetrical, No edema - Abdominal General gastrointestinal: Present: soft, non-tender, non-distended, normal bowel sounds Results - Labs CBC & Chem 7: 05/27/17 04:46 05/27/17 04:46 Labs: Abnormal lab results 05/27/17 05/27/17 Range/Units 04:46 04:46 RBC 1.84 L (3.65-5.03) M/mm3 Hgb 4.3 L* (11.8-15.2) gm/dl Hct 13.1 L* (35.5-45.6) % MCV 72 L D (84-94) fl MCH 23 L (28-32) pg RDW 30.3 H (13.2-15.2) % Seg Neuts % (Manual) 77.0 H (40.0-70.0) % Nucleated RBC % 1.0 H (0.0-0.9) % Lymphocytes # (Manual) 1.1 L (1.2-5.4) K/mm3 Sodium 136 L (137-145) mmol/L Creatinine 0.6 L (0.8-1.5) mg/dL Glucose 108 H (75-100) mg/dL Calcium 7.7 L (8.4-10.2) mg/dL Albumin 2.0 L (3.9-5) g/dL Assessment and Plan Given his CT findings and poor response to pRBC transfusion, I will take him down today for angiography and possible embolization of this small bowel lesion. This may not be a typical bleed to its apparent chronicity. I informed the patient that there was a chance that depending on the appearance, there was a chance this lesion may not be amenable to embolization.
--- NOTE | 2017-05-27 10:53 | Cat Scan Report ---
CT ABDOMEN AND PELVIS WITHOUT AND WITH CONTRAST: 05/26/17 23:54:00 CLINICAL: GI bleed with jejunal hemorrhage demonstrated on the last exam. COMPARISON: 05/26/17 TECHNIQUE: Volumetric acquisition and 1.25 millimeter scan reconstructions without contrast and after the uneventful intravenous injection of 100 cc Omnipaque 300. Postcontrast scans were obtained in arterial, portal venous and delayed phases. Consent was obtained prior to the administration of contrast. Oral contrast was not given. FINDINGS: Abdomen: Clear lung bases. The liver is mildly enlarged with the right lobe measuring 18 cm in length. No liver mass or nodularity. The overall density is normal with no evidence of fat. Normal hepatic and portal vasculature. No varices identified. The stomach has a relatively thick wall but is otherwise normal. Normal duodenum and pancreas. The spleen is enlarged and measures approximately 13 x 10 x 5 cm. The spleen is otherwise normal. Normal adrenal glands and kidneys. The renal collecting systems and ureters are nondilated. Normal aorta and IVC. Moderate fluid throughout the small bowel and no evidence of jejunal hemorrhage or contrast extravasation as demonstrated on the last exam. The colon is normal with moderate stool. Normal appendix. Mesenteric lymphadenopathy with the largest lymph node measuring 2.9 x 1.6 cm. Mild lower abdominal ascites. Pelvis: Normal urinary bladder and prostate. Moderate nonspecific rectal wall thickening and numerous small perirectal lymph nodes as described on the prior exam. Small bilateral inguinal lymph nodes. Bone windows demonstrate no suspicious bone lesion. IMPRESSION:1. No evidence of active GI bleed as demonstrated on the last exam. 2. Mild hepatosplenomegaly. 3. Mesenteric and perirectal lymphadenopathy with a differential of neoplasm and infection.
[2017-05-27] MEDS ORDERED: ANCEF/STERILE WATER 2 GM/20 ML 2 GM/20 ML SYRINGE IV ONE (11:41)
[2017-05-27] MEDS ORDERED: NACL 0.9% 500 ML 500 ML ONE ×2 (11:42→12:51)
[2017-05-27] MEDS: VERSED ONE ×2 (11:57→12:15)
[2017-05-27] MEDS: XYLOCAINE 1%/ EPI 1:100,000 INFILTRATI ONE ×2 (11:57→12:20)
[2017-05-27] MEDS: SUBLIMAZE ONE ×2 (11:58→12:15)
[2017-05-27] MEDS: HEPARIN/NS 5000 UNIT/500ML(CATH LAB) 500 ML IR ONE ×2 (11:59→12:10)
--- NOTE | 2017-05-27 13:47 | Operative Report ---
Operative Report Operative Report: Procedure: 1. Celiac angiography. 2. Superior mesenteric angiography. 3. Inferior mesenteric arteriography. 4. Angio-Seal closure of the right common femoral artery. 5. Ultrasound-guided access of the right common femoral artery. Physician: Sebastián Trinh MD Date: 05/27/2017 Indication: This is a 22-year-old male with HIV and evidence of lower GI bleeding. He had a markedly decreased hemoglobin of 3, which was poorly responsive to red blood cell transfusion. However, he was always hemodynamically stable. CT with contrast revealed a prominent contrast blush in the mid jejunal loops. Technique: The patient was placed in the supine position on the procedure table. He was prepped and draped in the usual sterile fashion. A timeout was performed. Local anesthetic was administered. Under continuous ultrasound guidance, a 21- gauge needle was advanced into the right common femoral artery. This was ultimately exchanged for a 5 Palau[place] vascular sheath via a 4 Palauan exchange and dilator. A Jennings guidewire and 4 Palauan Connectivity catheter were advanced into the aorta and used to select the celiac artery. Celian angiography was performed. The superior mesenteric artery was then selected. Superior mesenteric arteriography was then performed in multiple obliquities and projections. The inferior mesenteric artery was selected, and angiography was again performed. The superior mesenteric artery was then selected again for further evaluation, and angiography was again performed. All catheters and guidewires were removed. Hemostasis was achieved with a 6 Palauan Angio-Seal device. Sterile dressings were applied. The patient was transported from the room in stable condition. Findings: There is no definite evidence of contrast extravasation into the bowel to indicate the presence of active GI bleeding. In the right upper quadrant small bowel loops there is suggestion of bowel hyperemia, with perhaps early filling in an adjacent portal vein branches. However even in this region, there is no visualization of contrast extravasation. During each arteriogram performed, there is complete washout of contrast, with no remaining visible contrast during the venous phase. Celiac anatomy is standard. The superior mesenteric artery is grossly normal in appearance. The portal veins are patent.
[2017-05-27] MEDS: PEPCID IV SCH (14:17)
[2017-05-27] MEDS: THERAGRAN-M Tab PO SCH (14:17)
--- NOTE | 2017-05-27 16:41 | Gastroenterology Progress Note ---
Assessment and Plan - Patient Problems (1) Acute blood loss anemia Current Visit: Yes Status: Acute Plan to address problem: - Recurrent for the last 6 months (hosp x 3, twice in [place]). - EGD/Colon (-) at [facility] (per report of patient). - CT here showed mid-jejunal bleeding; angiogram today was normal with no localization. - Will repeat EGD tomorrow with SB scope to assess for AVMs, or possibly HIV- specific lesion such as KS. - Continue transfusion and MVI. - NPO after midnight, and convert to protonix PO since no hx of PUD and the bleeding was not gastric/duodenal. Subjective Date of service: 05/27/17 Principal diagnosis: Acute GI Bleed Interval history: The patient had hematochezia overnight, but none today. He is tolerating liquids without N/V/abdominal pain. He had an angiogram today that showed no obvious source of bleeding. He continues to be awake/alert with normal vitals and no signs of distress. Objective - Constitutional Vitals: Temp Pulse Resp BP Pulse Ox 98 F 90 18 84/44 100 05/27/17 16:05 05/27/17 16:05 05/27/17 16:05 05/27/17 16:05 05/27/17 16:05 General appearance: no acute distress - EENT Eyes: PERRL, EOM intact, other (conjunctiva pale) - Respiratory Respiratory effort: normal Respiratory: bilateral: CTA - Cardiovascular Rhythm: regular Heart Sounds: Present: S1 & S2 - Extremities Extremities: no ischemia, No edema - Gastrointestinal General gastrointestinal: Present: soft, non-tender, non-distended - Labs CBC & Chem 7: 05/27/17 04:46 05/27/17 04:46 Labs: Laboratory Results - last 24 hr 05/27/17 05/27/17 05/27/17 04:46 04:46 04:46 WBC 6.2 RBC 1.84 L Hgb 4.3 L* Hct 13.1 L* MCV 72 L D MCH 23 L MCHC 33 RDW 30.3 H Plt Count 216 Add Manual Diff Complete Total Counted 100 Seg Neuts % (Manual) 77.0 H Band Neutrophils % 0 Lymphocytes % (Manual) 17.0 Reactive Lymphs % (Man) 0 Monocytes % (Manual) 5.0 Basophils % (Manual) 1.0 Metamyelocytes % 0 Myelocytes % 0 Promyelocytes % 0 Blast Cells % 0 Nucleated RBC % 1.0 H Seg Neutrophils # Man 4.8 Band Neutrophils # 0.0 Lymphocytes # (Manual) 1.1 L Abs React Lymphs (Man) 0.0 Monocytes # (Manual) 0.3 Eosinophils # (Manual) 0.0 Basophils # (Manual) 0.1 Metamyelocytes # 0.0 Myelocytes # 0.0 Promyelocytes # 0.0 Blast Cells # 0.0 WBC Morphology Not Reportable Hypersegmented Neuts Not Reportable Hyposegmented Neuts Not Reportable Hypogranular Neuts Not Reportable Smudge Cells Not Reportable Toxic Granulation Not Reportable Toxic Vacuolation Not Reportable Dohle Bodies Not Reportable Pelger-Huet Anomaly Not Reportable Cecelia Rods Not Reportable Platelet Estimate Appears normal Clumped Platelets Not Reportable Plt Clumps, EDTA Not Reportable Large Platelets Not Reportable Giant Platelets Rare Platelet Satelliting Not Reportable Plt Morphology Comment Not Reportable RBC Morphology Not Reportable Dimorphic RBCs Not Reportable Polychromasia Not Reportable Hypochromasia 1+ Poikilocytosis Not Reportable Anisocytosis 3+ Microcytosis Not Reportable Macrocytosis Not Reportable Spherocytes Not Reportable Pappenheimer Bodies Not Reportable Sickle Cells Not Reportable Target Cells Few Tear Drop Cells Rare Ovalocytes Not Reportable Helmet Cells Not Reportable [place] Bodies Not Reportable [place] Rings Not Reportable [place] Cells Not Reportable Bite Cells Not Reportable Crenated Cell Not Reportable Elliptocytes Not Reportable Acanthocytes (Spur) Not Reportable Rouleaux Not Reportable Hemoglobin C Crystals Not Reportable Schistocytes Not Reportable Malaria parasites Not Reportable [place] Bodies Not Reportable Hem Pathologist Commnt No Sodium 136 L Potassium 4.4 Chloride 106.6 Carbon Dioxide 22 Anion Gap 12 BUN 15 Creatinine 0.6 L Estimated GFR > 60 BUN/Creatinine Ratio 25.00 Glucose 108 H Calcium 7.7 L Total Bilirubin 0.40 AST 19 ALT 10 Alkaline Phosphatase 41 Total Protein 7.6 Albumin 2.0 L Albumin/Globulin Ratio 0.4 RPR Nonreactive
--- NOTE | 2017-05-27 17:41 | Consultation ---
History of Present Illness Consult date: 05/27/17 Requesting physician: BUD PINO Reason for consult: other (GI bleed) History of present illness: Pt. here for above. Developed some maroon stools 05/26/17 w/ generalized malaise. Found to have severe anemia. Has received PRBCs x 4 and feels better. No GI bleed today. No chest pain, SOB, fevers, chills, cough, N/V. Has hx of HIV of unknown severity. Active Medications Acetaminophen (Tylenol) 650 mg PO Q4H PRN PRN Reason: Pain MILD(1-3)/Fever >100.5/EMERY Bisacodyl (Dulcolax) 10 mg [place] QDAY PRN PRN Reason: Constipation unrelieved by MOM Hydromorphone HCl (Dilaudid) 0.5 mg IV Q3H PRN PRN Reason: Pain , Severe (7-10) Last Admin: 05/27/17 01:00 Dose: 0.5 mg Dextrose/Sodium Chloride (D5ns) 1,000 mls @ 75 mls/hr IV DIRECT ANGEL LUIS Last Admin: 05/27/17 01:50 Dose: 75 mls/hr Multivitamins/Minerals (Theragran-M Tab) 1 each PO QDAY ANGEL LUIS Last Admin: 05/27/17 14:17 Dose: 1 each Ondansetron HCl (Zofran) 4 mg IV Q8H PRN PRN Reason: N/V unrelieved by Reglan Pantoprazole (Protonix) 40 mg PO QDAY ANGEL LUIS Last Admin: 05/26/17 22:00 Dose: 40 mg Past History Past Medical History: GERD, HIV/AIDS Social history: full code. denies: smoking, alcohol abuse, prescription drug abuse, IV drug use Family history: other (Denies) Medications and Allergies Allergies Allergy/AdvReac Type Severity Reaction Status Date / Time No Known Allergies Allergy Unverified 05/26/17 14:03 Home Medications Medication Instructions Recorded Confirmed Last Taken Type No Known Home Medications [No 05/26/17 05/26/17 Unknown History Reported Home Medications] Active Meds: Active Medications Acetaminophen (Tylenol) 650 mg PO Q4H PRN PRN Reason: Pain MILD(1-3)/Fever >100.5/EMERY Bisacodyl (Dulcolax) 10 mg [place] QDAY PRN PRN Reason: Constipation unrelieved by MOM Hydromorphone HCl (Dilaudid) 0.5 mg IV Q3H PRN PRN Reason: Pain , Severe (7-10) Last Admin: 05/27/17 01:00 Dose: 0.5 mg Dextrose/Sodium Chloride (D5ns) 1,000 mls @ 75 mls/hr IV DIRECT ANGEL LUIS Last Admin: 05/27/17 01:50 Dose: 75 mls/hr Multivitamins/Minerals (Theragran-M Tab) 1 each PO QDAY ANGEL LUIS Last Admin: 05/27/17 14:17 Dose: 1 each Ondansetron HCl (Zofran) 4 mg IV Q8H PRN PRN Reason: N/V unrelieved by Reglan Pantoprazole (Protonix) 40 mg PO QDAY [facility] Last Admin: 05/26/17 22:00 Dose: 40 mg Review of Systems All systems: negative Physical Examination Vital signs: Vital Signs Temp Pulse Resp BP Pulse Ox 98.8 F 125 H 16 97/52 100 05/26/17 13:58 05/26/17 13:58 05/26/17 13:58 05/26/17 13:58 05/26/17 13:58 General appearance: no acute distress, alert Eyes: non-icteric ENT: oropharynx moist Neck: supple Effort: normal Ascultation: Bilateral: clear Cardiovascular: regular rate and rhythm (no mrg) Gastrointestinal: normoactive bowel sounds, soft, non-tender, non-distended Integumentary: normal Extremities: no cyanosis, no edema, pink and warm normal mental status, non-focal exam, pupils equal and round, CN II-XII normal mood appropriate, affect normal Results - Laboratory Findings CBC and BMP: 05/27/17 04:46 05/27/17 04:46 PT/INR, D-dimer PT 14.9 Sec. (12.2-14.9) 05/26/17 16:23 INR 1.11 (0.87-1.13) 05/26/17 16:23 Abnormal lab findings: Abnormal Labs 05/27/17 05/27/17 04:46 04:46 RBC 1.84 L Hgb 4.3 L* Hct 13.1 L* MCV 72 L D MCH 23 L RDW 30.3 H Seg Neuts % (Manual) 77.0 H Nucleated RBC % 1.0 H Lymphocytes # (Manual) 1.1 L Sodium 136 L Creatinine 0.6 L Glucose 108 H Calcium 7.7 L Albumin 2.0 L Assessment and Plan Imp: 1. LGIB 2. Acute blood loss anemia, ? on chronic 3. HIV 4. Mesenteric/perirectal LAD Rec: 1. Receiving 2 more units of PRBCs 2. No active bleeding today; embolization not successful; f/u GI recs 3. SCDs in place 4. Check CD4 5. Obtain an extra peripheral IV 6. Observe in ICU tonight Plan of care reviewed w/ patient, he understands/agrees
--- NOTE | 2017-05-27 19:53 | Consultation ---
INPATIENT CONSULTATION CONSULTING PHYSICIAN: Dr. Randall Chan. REQUESTING PHYSICIAN: Dr. Orlando. REASON FOR CONSULTATION: GI bleeding. HISTORY OF PRESENT ILLNESS: The patient is a 22-year-old male with a history of intermittent anemia. This has been occurring since November. He was hospitalized twice at [facility] in [place] in both November and January. Both times, he was transfused blood. CT scans identified no significant lesion and in January he had an upper and lower endoscopy, these were also negative. He denies seeing any bright red blood per rectum, hematochezia, melena, and he has no hematemesis. He says he overall feels well with no nausea, vomiting, abdominal pain, or weight loss. He has a good appetite. He has no family history of gastrointestinal bleeding or intestinal malignancy. He is HIV positive and does not know his T-cell count. He is not taking any medications nor has he within the last couple of years, and he was diagnosed at age 17. He actually came to the Emergency Room for anal pain, which was acute onset of 1 week duration associated with straining of stools. He has no history of anal fissure and he has not had any anal sex for last 3 to 6 months. He does have diffuse lymphadenopathy, but has no history of malignancy. He does take Advil on an almost daily basis for intermittent headaches and aches in his joints, but he has no history of peptic ulcer disease nor was one noted in January when he had his upper endoscopy. PAST MEDICAL HISTORY: HIV, diagnosed at age 17; noncompliant with medical followup or medications. MEDICATIONS: Include Advil and a multivitamin. ALLERGIES: The patient denies. SOCIAL HISTORY: Positive for tobacco and alcohol on a daily basis. FAMILY HISTORY: Negative for GI-related malignancy and also negative for bleeding disorders. REVIEW OF SYSTEMS: Comprehensive review of systems was negative except as otherwise noted in the history of present illness. PHYSICAL EXAMINATION: VITAL SIGNS: Blood pressure was 110/72, pulse was 105, pulse ox was 98% on room air with the respirations of 18. GENERAL: Well-developed, well-nourished male in no acute distress. HEENT: Pupils equally round and reactive to light. Extraocular movements intact. Conjunctivae are pale. Oropharynx is clear without evidence of thrush and with no evidence of Kaposi's sarcoma. Dentition is fair. NECK: Supple, with no lymphadenopathy. CARDIOVASCULAR: Tachycardia, but regular rhythm. No murmurs, gallops, or rubs. PULMONARY: Clear to auscultation bilaterally. ABDOMEN: Soft, mildly distended, but nontender. Bowel sounds slightly hyperactive. EXTREMITIES: No cyanosis or edema, but mild clubbing. MUSCULOSKELETAL: Within normal limits. SKIN: Notable for pallor. NEUROLOGIC: Within normal limits. LABORATORY STUDIES: Reviewed. DIAGNOSTIC DATA: CT scan shows evidence of diffuse lymphadenopathy as well as mild hemorrhage in the mid jejunal area with a very faint blush that was decreased with subsequent imaging. ASSESSMENT: Recurrent anemia with gastrointestinal bleeding in the jejunum. Upper and lower endoscopy as well as CT scans were negative in [place] and are negative here except for lymphadenopathy and bleeding in the jejunum. RECOMMENDATIONS: 1. Continue transfusion. 2. Discontinue nonsteroidal anti-inflammatory drugs. 3. Protonix oral therapy. 4. Nothing by mouth. 5. Surgical and interventional radiology consult. 6. We will attempt an upper endoscopy with small bowel enteroscopy within the next 2 to 3 days; the most likely diagnosis would be Kaposi's sarcoma or possibly small bowel lymphoma. 7. Multivitamin daily therapy. 8. If the patient's bleeding becomes brisk, he will need to be taken to general surgery as it is unlikely that the endoscope could therapeutically reach the mid jejunum where the bleeding is. JOB# [id number] LAURA/NTS
--- NOTE | 2017-05-28 03:10 | Consultation ---
HISTORY OF PRESENT ILLNESS: He is a young man -[place] who presents to the ER because of rectal bleeding. Apparently, he was found to have a very low hemoglobin of 2.8, today it is 4.3, was given 4 units of packed cells so far. The platelets are 216 today. His INR is 1.11. His potassium is 4.1. The BUN is 10, the calcium is 8.5. The total bilirubin is 0.40. This man apparently is a known case of HIV positive. This was diagnosed about 7 years ago. He was admitted in the hospital in [place] about 4 months ago for the same. He was given some blood and apparently for he had no followup with any doctor. He came because he felt ____ disease. His blood pressure was low and has problem with some ? pain to the lower abdomen with generalized weakness. He was evaluated by Dr. Chan, our claim service representative, because of the above and he was found to have bleeding in the small intestines. I was asked just to check him from a surgical point of view. The patient is a healthy looking young man. He has no children. He is not allergic to any medications. He has no diabetes. He does not take any medication on regular basis. He is noncompliant. PHYSICAL EXAMINATION: GENERAL: At this point showed a well preserved young who is in no distress. He looks okay to me. HEAD AND NECK: Negative. CHEST: Clear. HEART: Sounds normal. ABDOMEN: Flat, soft, benign. EXTREMITIES: Showed no significant edema. IMPRESSION: Minimal abdominal pain with gastrointestinal bleeding in a case of HIV positive, ? lymphoma as per Dr. Chan's description. I had a lengthy talk with the patient as to the need for observation, got to check his H and H on a regular basis and he may need some more blood. Noted that his platelets were okay. So I just need to continue observation and go from there. JOB# [id number] MOMO/NARCISO
[2017-05-28] MEDS: DILAUDID IV PRN ×3 (03:36→22:57)
[2017-05-28] MEDS: D5NS 1,000 ML IV SCH ×2 (03:40→17:06)
[2017-05-28 04:16] LABS: Hematocrit 22.1 % (35.5-45.6); Hemoglobin 7.3 gm/dl (11.8-15.2); Mean Corpuscular HGB Conc 33 % (32-34); Mean Corpuscular Volume 78 fl (84-94); Platelet Count 214 K/mm3 (140-440); Red Blood Count 2.84 M/mm3 (3.65-5.03); White Blood Count 4.4 K/mm3 (4.5-11.0)
[2017-05-28 04:18] LABS: Mean Corpuscular Hemoglobin 26 pg (28-32); Red Cell Distribution Width 23.8 % (13.2-15.2)
[2017-05-28 04:37] LABS: Alanine Aminotransferase 10 units/L (7-56); Albumin 2.1 g/dL (3.9-5); Albumin/Globulin Ratio 0.3 %; Alkaline Phosphatase 46 units/L (35-129); Anion Gap 12 mmol/L; Blood Urea Nitrogen 9 mg/dL (9-20); Calcium 7.9 mg/dL (8.4-10.2); Carbon Dioxide 23 mmol/L (22-30); Chloride 98.4 mmol/L (98-107); Glucose 88 mg/dL (75-100); Potassium 3.9 mmol/L (3.6-5.0); Total Protein 8.3 g/dL (6.3-8.2)
[2017-05-28 05:00] LABS: Sodium 129 mmol/L (137-145)
[2017-05-28 05:22] LABS: Basophils % (Manual) 0 % (0.0-1.8); Blastocytes % (Manual) 0 %
[2017-05-28 05:23] LABS: Anisocytosis 2+; Diff Status Complete; Hypochromasia 1+; Smudge Cells 1+
[2017-05-28] MEDS ORDERED: WATER FOR IRRIG STERILE IR ONE (06:56)
[2017-05-28] MEDS ORDERED: NACL 0.9% 1000 ML 1,000 ML IV SCH (08:00)
[2017-05-28] MEDS ORDERED: DIPRIVAN 10 MG/ML IV ONE ×3 (10:05)
--- NOTE | 2017-05-28 10:33 | Anesthesia Consultation ---
Anesthesia Consult and Med Hx Date of service: 05/28/17 - Airway Anesthetic Teeth Evaluation: Good ROM Head & Neck: Adequate Mental/Hyoid Distance: Adequate Mallampati Class: Class II Intubation Access Assessment: Probably Good - Pulmonary Exam CTA: Yes - Cardiac Exam Cardiac Exam: RRR - Pre-Operative Health Status ASA Pre-Surgery Classification: ASA3 Proposed Anesthetic Plan: MAC - Pulmonary Hx Asthma: No COPD: No Hx Pneumonia: No - Gastrointestinal Hx Gastroesophageal Reflux Disease: Yes - Endocrine Hx End Stage Renal Disease: No - Hematic Hx Anemia: Yes (hemorhage anemia) - Other Systems Hx Alcohol Use: Yes (2-3 times a week) Hx Cancer: No - Additional Comments Anesthesia Medical History Comments: HIV Positive, not on any meds
--- NOTE | 2017-05-28 10:33 | Anesthesia Day of Surgery ---
Anesthesia Day of Surgery - Day of Surgery Patient Examined: Yes Patient H&P Reviewed: Yes Patient is NPO: Yes
--- NOTE | 2017-05-28 10:47 | Progress Note ---
Assessment and Plan Assessment and plan: Patient 22-year-old male with past medical history of HIV diagnosed when he was 17 noncompliant with follow-up not taking any antiretrovirals, presents to the ED complaining of lower abdominal pain, anal pain, generalized weakness and fatigue. Patient states symptoms started approximately 1 week prior with anal pain with defecation. Patient denies anal bleeding. Patient denies appreciating anal masses. He states intermittently has a dull pain pelvic area that intermittent no relaxing or worsening factors. He also states he's been having generalized shortness of breath with exertion and generalized fatigue. Patient noted to have maroon stools on 05/26/17 w/ generalized malaise. Found to have severe anemia. Has received PRBCs x 4 and feels better. No GI bleed today. No chest pain, SOB, fevers, chills, cough, N/V. Has hx of HIV of unknown severity. * Acute GI bleed. Initial hemoglobin was 2.8. Now 7.3 after 8 units PRBC. S/P angiogram with vascular with no significant findings to support Anemia. Possible endoscopy in am to assess for AVM or possible HIV related KS, patient with hx EGD/Colon (-) at [facility] (per report of patient). And also Recurrent for the last 6 months (hosp x 3, twice in [place]) * Acute on chronic Anemia due to acute blood loss. GI following, s/p 8units PRBC * HIV. He is noncompliant. To follow as an outpatient. Counselling provided * Hyponatremia- Monitor * Moderate Protein Calorie malnutrition. Bean Snipper consult * DVT prophylaxis with SCDs only because of acute bleed * Full CODE STATUS * Can tranfer to Tele, discussed with GI, await pathology report. History Interval history: Patient seen and examined, in no acute distress. states he is hungry, no further bleeding noted today. Hospitalist Physical - Physical exam Narrative exam: VITAL SIGNS: Reviewed. GENERAL: The patient appeared cachectic. And normally developed. Vital signs as documented. HEAD: No signs of head trauma. EYES: Pupils are equal. Extraocular motions intact. EARS: Hearing grossly intact. MOUTH: Oropharynx is normal. NECK: No adenopathy, no JVD. CHEST: Chest with clear breath sounds bilaterally. No wheezes, rales, or rhonchi. CARDIAC: Regular rate and rhythm. S1 and S2, without murmurs, gallops, or rubs. VASCULAR: No Edema. Peripheral pulses normal and equal in all extremities. ABDOMEN: Soft, without detectable tenderness. No sign of distention. No rebound or guarding, and no masses palpated. Bowel Sounds normal. MUSCULOSKELETAL: Good range of motion of all major joints. Extremities without clubbing, cyanosis or edema. NEUROLOGIC EXAM: Alert and oriented x 3. No focal sensory or strength deficits. Speech normal. Follows commands. PSYCHIATRIC: Mood normal. SKIN: No rash or lesions. - Constitutional Vitals: Temp Pulse Resp BP Pulse Ox 98.7 F 76 14 101/60 100 05/28/17 03:45 05/28/17 08:21 05/28/17 08:00 05/28/17 08:21 05/28/17 08:21 General appearance: Present: no acute distress, well-nourished Results - Labs CBC & Chem 7: 05/28/17 03:59 05/28/17 03:59 Labs: Laboratory Last Values WBC 4.4 K/mm3 (4.5-11.0) L 05/28/17 03:59 RBC 2.84 M/mm3 (3.65-5.03) L 05/28/17 03:59 Hgb 7.3 gm/dl (11.8-15.2) L D 05/28/17 03:59 Hct 22.1 % (35.5-45.6) L D 05/28/17 03:59 MCV 78 fl (84-94) L D 05/28/17 03:59 MCH 26 pg (28-32) L 05/28/17 03:59 MCHC 33 % (32-34) 05/28/17 03:59 RDW 23.8 % (13.2-15.2) H 05/28/17 03:59 Plt Count 214 K/mm3 (140-440) 05/28/17 03:59 Add Manual Diff Complete 05/28/17 03:59 Total Counted 100 05/28/17 03:59 Seg Neuts % (Manual) 69.0 % (40.0-70.0) 05/28/17 03:59 Band Neutrophils % 1.0 % 05/28/17 03:59 Lymphocytes % (Manual) 22.0 % (13.4-35.0) 05/28/17 03:59 Reactive Lymphs % (Man) 0 % 05/28/17 03:59 Monocytes % (Manual) 7.0 % (0.0-7.3) 05/28/17 03:59 Eosinophils % (Manual) 1.0 % (0.0-4.3) 05/28/17 03:59 Basophils % (Manual) 0 % (0.0-1.8) 05/28/17 03:59 Metamyelocytes % 0 % 05/28/17 03:59 Myelocytes % 0 % 05/28/17 03:59 Promyelocytes % 0 % 05/28/17 03:59 Blast Cells % 0 % 05/28/17 03:59 Nucleated RBC % 11.0 % (0.0-0.9) H 05/28/17 03:59 Seg Neutrophils # Man 3.0 K/mm3 (1.8-7.7) 05/28/17 03:59 Band Neutrophils # 0.0 K/mm3 05/28/17 03:59 Lymphocytes # (Manual) 1.0 K/mm3 (1.2-5.4) L 05/28/17 03:59 Abs React Lymphs (Man) 0.0 K/mm3 05/28/17 03:59 Monocytes # (Manual) 0.3 K/mm3 (0.0-0.8) 05/28/17 03:59 Eosinophils # (Manual) 0.0 K/mm3 (0.0-0.4) 05/28/17 03:59 Basophils # (Manual) 0.0 K/mm3 (0.0-0.1) 05/28/17 03:59 Metamyelocytes # 0.0 K/mm3 05/28/17 03:59 Myelocytes # 0.0 K/mm3 05/28/17 03:59 Promyelocytes # 0.0 K/mm3 05/28/17 03:59 Blast Cells # 0.0 K/mm3 05/28/17 03:59 WBC Morphology Not Reportable 05/28/17 03:59 Hypersegmented Neuts Not Reportable 05/28/17 03:59 Hyposegmented Neuts Not Reportable 05/28/17 03:59 Hypogranular Neuts Not Reportable 05/28/17 03:59 Smudge Cells 1+ 05/28/17 03:59 Toxic Granulation Not Reportable 05/28/17 03:59 Toxic Vacuolation Not Reportable 05/28/17 03:59 Dohle Bodies Not Reportable 05/28/17 03:59 Pelger-Huet Anomaly Not Reportable 05/28/17 03:59 Cecelia Rods Not Reportable 05/28/17 03:59 Platelet Estimate Appears normal 05/28/17 03:59 Clumped Platelets Not Reportable 05/28/17 03:59 Plt Clumps, EDTA Not Reportable 05/28/17 03:59 Large Platelets Not Reportable 05/28/17 03:59 Giant Platelets Not Reportable 05/28/17 03:59 Platelet Satelliting Not Reportable 05/28/17 03:59 Plt Morphology Comment Not Reportable 05/28/17 03:59 RBC Morphology Not Reportable 05/28/17 03:59 Dimorphic RBCs Not Reportable 05/28/17 03:59 Polychromasia Not Reportable 05/28/17 03:59 Hypochromasia 1+ 05/28/17 03:59 Poikilocytosis Not Reportable 05/28/17 03:59 Anisocytosis 2+ 05/28/17 03:59 Microcytosis Not Reportable 05/28/17 03:59 Macrocytosis Not Reportable 05/28/17 03:59 Spherocytes Not Reportable 05/28/17 03:59 Pappenheimer Bodies Not Reportable 05/28/17 03:59 Sickle Cells Not Reportable 05/28/17 03:59 Target Cells Not Reportable 05/28/17 03:59 Tear Drop Cells Not Reportable 05/28/17 03:59 Ovalocytes Not Reportable 05/28/17 03:59 Helmet Cells Not Reportable 05/28/17 03:59 [place] Bodies Not Reportable 05/28/17 03:59 [place] Rings Not Reportable 05/28/17 03:59 [place] Cells Not Reportable 05/28/17 03:59 Bite Cells Not Reportable 05/28/17 03:59 Crenated Cell Not Reportable 05/28/17 03:59 Elliptocytes Not Reportable 05/28/17 03:59 Acanthocytes (Spur) Not Reportable 05/28/17 03:59 Rouleaux Not Reportable 05/28/17 03:59 Hemoglobin C Crystals Not Reportable 05/28/17 03:59 Schistocytes Not Reportable 05/28/17 03:59 Malaria parasites Not Reportable 05/28/17 03:59 [place] Bodies Not Reportable 05/28/17 03:59 Hem Pathologist Commnt No 05/28/17 03:59 PT 14.9 Sec. (12.2-14.9) 05/26/17 16:23 INR 1.11 (0.87-1.13) 05/26/17 16:23 APTT 28.1 Sec. (24.2-36.6) 05/26/17 16:23 Sodium 129 mmol/L (137-145) L D 05/28/17 03:59 Potassium 3.9 mmol/L (3.6-5.0) 05/28/17 03:59 Chloride 98.4 mmol/L (98-107) 05/28/17 03:59 Carbon Dioxide 23 mmol/L (22-30) 05/28/17 03:59 Anion Gap 12 mmol/L 05/28/17 03:59 BUN 9 mg/dL (9-20) 05/28/17 03:59 Creatinine 0.6 mg/dL (0.8-1.5) L 05/28/17 03:59 Estimated GFR > 60 ml/min 05/28/17 03:59 BUN/Creatinine Ratio 15.00 % 05/28/17 03:59 Glucose 88 mg/dL (75-100) 05/28/17 03:59 Calcium 7.9 mg/dL (8.4-10.2) L 05/28/17 03:59 Total Bilirubin 0.70 mg/dL (0.1-1.2) 05/28/17 03:59 AST 19 units/L (5-40) 05/28/17 03:59 ALT 10 units/L (7-56) 05/28/17 03:59 Alkaline Phosphatase 46 units/L (35-129) 05/28/17 03:59 Lactate Dehydrogenase 141 units/L (91-180) 05/27/17 20:00 Total Protein 8.3 g/dL (6.3-8.2) H 05/28/17 03:59 Albumin 2.1 g/dL (3.9-5) L 05/28/17 03:59 Albumin/Globulin Ratio 0.3 % 05/28/17 03:59 Urine Color Yellow (Yellow) 05/26/17 19:47 Urine Turbidity Clear (Clear) 05/26/17 19:47 Urine pH 5.0 (5.0-7.0) 05/26/17 19:47 Ur Specific [place] 1.035 (1.003-1.030) H 05/26/17 19:47 Urine Protein <15 mg/dl mg/dL (Negative) 05/26/17 19:47 Urine Glucose (UA) Neg mg/dL (Negative) 05/26/17 19:47 Urine Ketones Neg mg/dL (Negative) 05/26/17 19:47 Urine Blood Neg (Negative) 05/26/17 19:47 Urine Nitrite Neg (Negative) 05/26/17 19:47 Urine Bilirubin Neg (Negative) 05/26/17 19:47 Urine Urobilinogen < 2.0 mg/dL (<2.0) 05/26/17 19:47 Ur Leukocyte Esterase Neg (Negative) 05/26/17 19:47 Urine WBC (Auto) < 1.0 /HPF (0.0-6.0) 05/26/17 19:47 Urine RBC (Auto) 4.0 /HPF (0.0-6.0) 05/26/17 19:47 U Epithel Cells (Auto) < 1.0 /HPF (0-13.0) 05/26/17 19:47 Urine Bacteria (Auto) 1+ /HPF (Negative) 05/26/17 19:47 Urine Mucus Few /HPF 05/26/17 19:47 RPR Nonreactive (Nonreactive) 05/27/17 04:46 Blood Type O POSITIVE 05/26/17 16:05 Antibody Screen TNR 05/26/17 16:05 NESSA Antibody Screen Negative 05/26/17 16:05 Crossmatch See Detail 05/26/17 16:05
[2017-05-28] MEDS ORDERED: GI SPOT IJ ONE (11:17)
--- NOTE | 2017-05-28 11:39 | Post Operative Note ---
Pre-op diagnosis: GI Bleed Post-op diagnosis: other (Jejunal lesions) Findings: 1. 2 lesions in the proximal jejunum, both bolivar-circumferential, mildly ulcerated, and with irregular mucosa - Lesions approximately 6cm apart - Cold bx taken, and both tattooed with Gwen Ink (6ml total) - Surrounding mucosa completely normal 2. Normal duodenum, stomach, and esophagus Procedure: EGD with cold bx and Gwen Ink tattoo Anesthesia: MAC Surgeon: LULA DUMONT Estimated blood loss: minimal Pathology: list (1. Jejunal mass lesions (1 jar, two lesions)) Specimen disposition: to lab Condition: stable Disposition: floor (Recs: 1. Surgical consult (I called). 2. ID consult (? small bowel lymphoma or KS). 3. Continue protonix. 4. Full liquid diet today, and advance as tolerated. 5. MVI therapy. 6. Await other serologies.)
[2017-05-28] MEDS: PROTONIX PO SCH ×2 (14:36→19:51)
[2017-05-28] MEDS: THERAGRAN-M Tab PO SCH (14:36)
--- NOTE | 2017-05-28 15:03 | Progress Note ---
Assessment and Plan Imp: 1. LGIB 2. Acute blood loss anemia, ? on chronic 3. HIV 4. Mesenteric/perirectal LAD 5. Hyponatremia Rec: 1. Hold further transfusion; monitor H/H; consider iron supplementation 2. F/u GI recs and small bowel biopsy 3. SCDs in place 4. Check CD4 5. Repeat sodium/CBC in AM Plan of care reviewed w/ patient and "best friend" (patient's direct consent to discuss with him was given), they understand/agree Subjective Date of service: 05/28/17 Principal diagnosis: Acute GI Bleed Interval history: EGD done. No further bleeding x 24 hours. No complaints. Active Medications Acetaminophen (Tylenol) 650 mg PO Q4H PRN PRN Reason: Pain MILD(1-3)/Fever >100.5/EMERY Bisacodyl (Dulcolax) 10 mg GA QDAY PRN PRN Reason: Constipation unrelieved by MOM Hydromorphone HCl (Dilaudid) 0.5 mg IV Q3H PRN PRN Reason: Pain , Severe (7-10) Last Admin: 05/28/17 03:36 Dose: 0.5 mg Dextrose/Sodium Chloride (D5ns) 1,000 mls @ 75 mls/hr IV DIRECT ANGEL LUIS Last Admin: 05/28/17 03:40 Dose: 75 mls/hr Sodium Chloride (Nacl 0.9% 1000 Ml) 1,000 mls @ 50 mls/hr IV DIRECT ANGEL LUIS Multivitamins/Minerals (Theragran-M Tab) 1 each PO QDAY [facility] Last Admin: 05/28/17 14:36 Dose: 1 each Ondansetron HCl (Zofran) 4 mg IV Q8H PRN PRN Reason: N/V unrelieved by Reglan Pantoprazole Sodium (Protonix) 40 mg PO DAILY [facility] Last Admin: 05/28/17 14:36 Dose: 40 mg Objective Vital Signs - 12hr 05/28/17 05/28/17 05/28/17 03:11 03:21 03:30 Temperature Pulse Rate 84 78 Pulse Rate [ From Monitor] Respiratory 20 12 7 L Rate Respiratory Rate [rectal] Blood Pressure 107/73 107/73 92/54 O2 Sat by Pulse 100 100 97 Oximetry 05/28/17 05/28/17 05/28/17 03:41 03:45 03:51 Temperature 98.7 F Pulse Rate 80 85 Pulse Rate [ From Monitor] Respiratory 8 L 11 L Rate Respiratory Rate [rectal] Blood Pressure 92/54 92/54 O2 Sat by Pulse 100 100 Oximetry 05/28/17 05/28/17 05/28/17 04:00 04:11 04:21 Temperature Pulse Rate Pulse Rate [ From Monitor] Respiratory Rate Respiratory Rate [rectal] Blood Pressure 92/54 105/60 O2 Sat by Pulse 99 99 99 Oximetry 05/28/17 05/28/17 05/28/17 04:31 04:41 04:51 Temperature Pulse Rate 69 72 Pulse Rate [ From Monitor] Respiratory 10 L Rate Respiratory Rate [rectal] Blood Pressure 105/60 105/60 105/60 O2 Sat by Pulse 99 100 100 Oximetry 05/28/17 05/28/17 05/28/17 05:00 05:11 05:21 Temperature Pulse Rate 75 75 69 Pulse Rate [ From Monitor] Respiratory 9 L 9 L 13 Rate Respiratory Rate [rectal] Blood Pressure 107/64 107/64 107/64 O2 Sat by Pulse 99 100 Oximetry 05/28/17 05/28/17 05/28/17 05:31 05:41 05:51 Temperature Pulse Rate 81 79 99 H Pulse Rate [ From Monitor] Respiratory 14 12 Rate Respiratory Rate [rectal] Blood Pressure 107/64 107/64 107/64 O2 Sat by Pulse 100 100 99 Oximetry 05/28/17 05/28/17 05/28/17 06:00 06:11 06:21 Temperature Pulse Rate 83 81 82 Pulse Rate [ From Monitor] Respiratory 11 L 12 17 Rate Respiratory Rate [rectal] Blood Pressure 115/68 115/68 115/68 O2 Sat by Pulse 100 100 100 Oximetry 05/28/17 05/28/17 05/28/17 06:31 06:41 06:51 Temperature Pulse Rate 76 71 Pulse Rate [ From Monitor] Respiratory 10 L 9 L Rate Respiratory Rate [rectal] Blood Pressure 115/68 115/68 115/68 O2 Sat by Pulse 100 99 100 Oximetry 05/28/17 05/28/17 05/28/17 07:00 07:11 07:21 Temperature Pulse Rate 68 74 73 Pulse Rate [ From Monitor] Respiratory 9 L 9 L 10 L Rate Respiratory Rate [rectal] Blood Pressure 96/65 96/65 96/65 O2 Sat by Pulse 100 100 100 Oximetry 05/28/17 05/28/17 05/28/17 07:31 07:41 07:51 Temperature Pulse Rate 78 80 Pulse Rate [ From Monitor] Respiratory 11 L 11 L Rate Respiratory Rate [rectal] Blood Pressure 96/65 96/65 96/65 O2 Sat by Pulse 100 100 99 Oximetry 05/28/17 05/28/17 05/28/17 08:00 08:11 08:21 Temperature 98.2 F Pulse Rate 77 82 76 Pulse Rate [ 80 From Monitor] Respiratory 14 Rate Respiratory Rate [rectal] Blood Pressure 101/60 101/60 101/60 O2 Sat by Pulse 100 100 100 Oximetry 05/28/17 05/28/17 05/28/17 08:31 08:45 09:00 Temperature Pulse Rate 78 75 82 Pulse Rate [ From Monitor] Respiratory Rate Respiratory Rate [rectal] Blood Pressure 101/60 101/60 98/56 O2 Sat by Pulse 100 100 99 Oximetry 05/28/17 05/28/17 05/28/17 09:15 09:31 09:45 Temperature Pulse Rate 76 72 Pulse Rate [ From Monitor] Respiratory 12 Rate Respiratory Rate [rectal] Blood Pressure 98/56 98/56 98/56 O2 Sat by Pulse 100 100 100 Oximetry 05/28/17 05/28/17 05/28/17 10:00 10:15 10:31 Temperature Pulse Rate 72 95 H 81 Pulse Rate [ From Monitor] Respiratory 12 11 L 15 Rate Respiratory 12 Rate [rectal] Blood Pressure 99/59 99/59 99/59 O2 Sat by Pulse 99 99 100 Oximetry 05/28/17 05/28/17 05/28/17 10:42 10:45 11:00 Temperature 98.2 F Pulse Rate 92 H 76 92 H Pulse Rate [ From Monitor] Respiratory 17 9 L 17 Rate Respiratory Rate [rectal] Blood Pressure 105/74 103/63 105/74 O2 Sat by Pulse 100 100 100 Oximetry 05/28/17 05/28/17 05/28/17 11:15 11:22 11:30 Temperature 98.5 F Pulse Rate 95 H 97 H 87 Pulse Rate [ From Monitor] Respiratory 14 15 17 Rate Respiratory Rate [rectal] Blood Pressure 110/71 120/66 104/63 O2 Sat by Pulse 98 100 100 Oximetry 05/28/17 05/28/17 05/28/17 11:37 11:45 11:52 Temperature Pulse Rate 88 85 85 Pulse Rate [ From Monitor] Respiratory 16 16 14 Rate Respiratory Rate [rectal] Blood Pressure 104/63 105/68 111/68 O2 Sat by Pulse 99 100 100 Oximetry 05/28/17 05/28/17 05/28/17 12:00 12:15 12:30 Temperature Pulse Rate 80 76 79 Pulse Rate [ 75 From Monitor] Respiratory 11 L 10 L 12 Rate Respiratory Rate [rectal] Blood Pressure 106/64 106/64 107/70 O2 Sat by Pulse 83 L 100 Oximetry 05/28/17 05/28/17 05/28/17 12:45 13:00 13:15 Temperature Pulse Rate 73 76 80 Pulse Rate [ From Monitor] Respiratory 11 L 13 10 L Rate Respiratory Rate [rectal] Blood Pressure 107/70 109/64 109/64 O2 Sat by Pulse 100 100 95 Oximetry 05/28/17 05/28/17 05/28/17 13:30 13:45 14:00 Temperature Pulse Rate 81 86 85 Pulse Rate [ From Monitor] Respiratory 12 16 11 L Rate Respiratory Rate [rectal] Blood Pressure 115/59 115/59 108/77 O2 Sat by Pulse 87 100 98 Oximetry Constitutional: no acute distress, alert Eyes: non-icteric ENT: oropharynx moist Neck: supple Effort: normal Ascultation: Bilateral: clear Cardiovascular: regular rate and rhythm (no mrg) Gastrointestinal: normoactive bowel sounds, soft, non-tender, non-distended Integumentary: normal Extremities: no cyanosis, no edema, pink and warm Neurologic: normal mental status, non-focal exam, pupils equal and round, CN II- XII normal Psychiatric: mood appropriate, affect normal CBC and BMP: 05/28/17 03:59 05/28/17 03:59 ABG, PT/INR, D-dimer: PT/INR, D-dimer PT 14.9 Sec. (12.2-14.9) 05/26/17 16:23 INR 1.11 (0.87-1.13) 05/26/17 16:23 Abnormal lab findings: Abnormal Labs 05/27/17 05/27/17 05/28/17 04:46 04:46 03:59 WBC 4.4 L RBC 1.84 L 2.84 L Hgb 4.3 L* 7.3 L D Hct 13.1 L* 22.1 L D MCV 72 L D 78 L D MCH 23 L 26 L RDW 30.3 H 23.8 H Seg Neuts % (Manual) 77.0 H Nucleated RBC % 1.0 H 11.0 H Lymphocytes # (Manual) 1.1 L 1.0 L Sodium 136 L Creatinine 0.6 L Glucose 108 H Calcium 7.7 L Total Protein Albumin 2.0 L 05/28/17 03:59 WBC RBC Hgb Hct MCV MCH RDW Seg Neuts % (Manual) Nucleated RBC % Lymphocytes # (Manual) Sodium 129 L D Creatinine 0.6 L Glucose Calcium 7.9 L Total Protein 8.3 H Albumin 2.1 L
--- NOTE | 2017-05-28 15:29 | Progress Note ---
Subjective Patient Reports: Positive: no new complaints, feels better, flatus, bowel movement Narrative: feels much better , on PO diet findings as per Dr Chan , Indicated to Pt the need for a 1 MD to FU with Pt . Objective Vital Signs - 12hr 05/28/17 05/28/17 05/28/17 03:30 03:41 03:45 Temperature 98.7 F Pulse Rate 78 80 Pulse Rate [ From Monitor] Respiratory 7 L 8 L Rate Respiratory Rate [rectal] Blood Pressure 92/54 92/54 O2 Sat by Pulse 97 100 Oximetry 05/28/17 05/28/17 05/28/17 03:51 04:00 04:11 Temperature Pulse Rate 85 Pulse Rate [ From Monitor] Respiratory 11 L Rate Respiratory Rate [rectal] Blood Pressure 92/54 92/54 O2 Sat by Pulse 100 99 99 Oximetry 05/28/17 05/28/17 05/28/17 04:21 04:31 04:41 Temperature Pulse Rate 69 Pulse Rate [ From Monitor] Respiratory Rate Respiratory Rate [rectal] Blood Pressure 105/60 105/60 105/60 O2 Sat by Pulse 99 99 100 Oximetry 05/28/17 05/28/17 05/28/17 04:51 05:00 05:11 Temperature Pulse Rate 72 75 75 Pulse Rate [ From Monitor] Respiratory 10 L 9 L 9 L Rate Respiratory Rate [rectal] Blood Pressure 105/60 107/64 107/64 O2 Sat by Pulse 100 99 Oximetry 05/28/17 05/28/17 05/28/17 05:21 05:31 05:41 Temperature Pulse Rate 69 81 79 Pulse Rate [ From Monitor] Respiratory 13 14 Rate Respiratory Rate [rectal] Blood Pressure 107/64 107/64 107/64 O2 Sat by Pulse 100 100 100 Oximetry 05/28/17 05/28/17 05/28/17 05:51 06:00 06:11 Temperature Pulse Rate 99 H 83 81 Pulse Rate [ From Monitor] Respiratory 12 11 L 12 Rate Respiratory Rate [rectal] Blood Pressure 107/64 115/68 115/68 O2 Sat by Pulse 99 100 100 Oximetry 05/28/17 05/28/17 05/28/17 06:21 06:31 06:41 Temperature Pulse Rate 82 76 71 Pulse Rate [ From Monitor] Respiratory 17 10 L 9 L Rate Respiratory Rate [rectal] Blood Pressure 115/68 115/68 115/68 O2 Sat by Pulse 100 100 99 Oximetry 05/28/17 05/28/17 05/28/17 06:51 07:00 07:11 Temperature Pulse Rate 68 74 Pulse Rate [ From Monitor] Respiratory 9 L 9 L Rate Respiratory Rate [rectal] Blood Pressure 115/68 96/65 96/65 O2 Sat by Pulse 100 100 100 Oximetry 05/28/17 05/28/17 05/28/17 07:21 07:31 07:41 Temperature Pulse Rate 73 78 80 Pulse Rate [ From Monitor] Respiratory 10 L 11 L 11 L Rate Respiratory Rate [rectal] Blood Pressure 96/65 96/65 96/65 O2 Sat by Pulse 100 100 100 Oximetry 05/28/17 05/28/17 05/28/17 07:51 08:00 08:11 Temperature 98.2 F Pulse Rate 77 82 Pulse Rate [ 80 From Monitor] Respiratory 14 Rate Respiratory Rate [rectal] Blood Pressure 96/65 101/60 101/60 O2 Sat by Pulse 99 100 100 Oximetry 05/28/17 05/28/17 05/28/17 08:21 08:31 08:45 Temperature Pulse Rate 76 78 75 Pulse Rate [ From Monitor] Respiratory Rate Respiratory Rate [rectal] Blood Pressure 101/60 101/60 101/60 O2 Sat by Pulse 100 100 100 Oximetry 05/28/17 05/28/17 05/28/17 09:00 09:15 09:31 Temperature Pulse Rate 82 76 Pulse Rate [ From Monitor] Respiratory Rate Respiratory Rate [rectal] Blood Pressure 98/56 98/56 98/56 O2 Sat by Pulse 99 100 100 Oximetry 05/28/17 05/28/17 05/28/17 09:45 10:00 10:15 Temperature Pulse Rate 72 72 95 H Pulse Rate [ From Monitor] Respiratory 12 12 11 L Rate Respiratory 12 Rate [rectal] Blood Pressure 98/56 99/59 99/59 O2 Sat by Pulse 100 99 99 Oximetry 05/28/17 05/28/17 05/28/17 10:31 10:42 10:45 Temperature 98.2 F Pulse Rate 81 92 H 76 Pulse Rate [ From Monitor] Respiratory 15 17 9 L Rate Respiratory Rate [rectal] Blood Pressure 99/59 105/74 103/63 O2 Sat by Pulse 100 100 100 Oximetry 05/28/17 05/28/17 05/28/17 11:00 11:15 11:22 Temperature 98.5 F Pulse Rate 92 H 95 H 97 H Pulse Rate [ From Monitor] Respiratory 17 14 15 Rate Respiratory Rate [rectal] Blood Pressure 105/74 110/71 120/66 O2 Sat by Pulse 100 98 100 Oximetry 05/28/17 05/28/17 05/28/17 11:30 11:37 11:45 Temperature Pulse Rate 87 88 85 Pulse Rate [ From Monitor] Respiratory 17 16 16 Rate Respiratory Rate [rectal] Blood Pressure 104/63 104/63 105/68 O2 Sat by Pulse 100 99 100 Oximetry 05/28/17 05/28/17 05/28/17 11:52 12:00 12:15 Temperature Pulse Rate 85 80 76 Pulse Rate [ 75 From Monitor] Respiratory 14 11 L 10 L Rate Respiratory Rate [rectal] Blood Pressure 111/68 106/64 106/64 O2 Sat by Pulse 100 83 L 100 Oximetry 05/28/17 05/28/17 05/28/17 12:30 12:45 13:00 Temperature Pulse Rate 79 73 76 Pulse Rate [ From Monitor] Respiratory 12 11 L 13 Rate Respiratory Rate [rectal] Blood Pressure 107/70 107/70 109/64 O2 Sat by Pulse 100 100 Oximetry 05/28/17 05/28/17 05/28/17 13:15 13:30 13:45 Temperature Pulse Rate 80 81 86 Pulse Rate [ From Monitor] Respiratory 10 L 12 16 Rate Respiratory Rate [rectal] Blood Pressure 109/64 115/59 115/59 O2 Sat by Pulse 95 87 100 Oximetry 05/28/17 14:00 Temperature Pulse Rate 85 Pulse Rate [ From Monitor] Respiratory 11 L Rate Respiratory Rate [rectal] Blood Pressure 108/77 O2 Sat by Pulse 98 Oximetry - Labs 05/28/17 03:59 05/28/17 03:59 Diabetes panel 05/28/17 Range/Units 03:59 Sodium 129 L D (137-145) mmol/L Potassium 3.9 (3.6-5.0) mmol/L Chloride 98.4 (98-107) mmol/L Carbon Dioxide 23 (22-30) mmol/L BUN 9 (9-20) mg/dL Creatinine 0.6 L (0.8-1.5) mg/dL Glucose 88 (75-100) mg/dL Calcium 7.9 L (8.4-10.2) mg/dL AST 19 (5-40) units/L ALT 10 (7-56) units/L Alkaline Phosphatase 46 (35-129) units/L Total Protein 8.3 H (6.3-8.2) g/dL Albumin 2.1 L (3.9-5) g/dL Calcium panel 05/28/17 Range/Units 03:59 Calcium 7.9 L (8.4-10.2) mg/dL Albumin 2.1 L (3.9-5) g/dL Pituitary panel 05/28/17 Range/Units 03:59 Sodium 129 L D (137-145) mmol/L Potassium 3.9 (3.6-5.0) mmol/L Chloride 98.4 (98-107) mmol/L Carbon Dioxide 23 (22-30) mmol/L BUN 9 (9-20) mg/dL Creatinine 0.6 L (0.8-1.5) mg/dL Glucose 88 (75-100) mg/dL Calcium 7.9 L (8.4-10.2) mg/dL Adrenal panel 05/28/17 Range/Units 03:59 Sodium 129 L D (137-145) mmol/L Potassium 3.9 (3.6-5.0) mmol/L Chloride 98.4 (98-107) mmol/L Carbon Dioxide 23 (22-30) mmol/L BUN 9 (9-20) mg/dL Creatinine 0.6 L (0.8-1.5) mg/dL Glucose 88 (75-100) mg/dL Calcium 7.9 L (8.4-10.2) mg/dL Total Bilirubin 0.70 (0.1-1.2) mg/dL AST 19 (5-40) units/L ALT 10 (7-56) units/L Alkaline Phosphatase 46 (35-129) units/L Total Protein 8.3 H (6.3-8.2) g/dL Albumin 2.1 L (3.9-5) g/dL
[2017-05-29] MEDS: DILAUDID IV PRN (02:23)
--- NOTE | 2017-05-29 04:49 | Operative Report ---
PROCEDURE PERFORMED: Esophagogastroduodenoscopy with advancement of the scope into the jejunum and cold biopsy with Gwen ink tattooing. PREOPERATIVE DIAGNOSIS: Gastrointestinal bleed and abnormal CT scan. POSTOPERATIVE DIAGNOSIS: Lesions in the small bowel or lesions in the jejunum. ENDOSCOPIST: Randall Chan MD INSTRUMENT: 10-20 Median video endoscope. MEDICATIONS: MAC anesthesia by Anesthesia Services. COMPLICATIONS: No apparent complications. ESTIMATED BLOOD LOSS: Minimal. 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 IMPLANTS: None. POWER ELECTRONICS ENGINEER: None. CONDITION AT COMPLETION: Stable. TECHNIQUE: The patient was informed of the risks and benefits of the procedure. He signed the informed consent to proceed. He was placed in left lateral decubitus position. The above sedative medications were given. His vital signs remained stable throughout the procedure. The small bowel colonoscope was advanced from the mouth into the proximal jejunum. At that point, the bowel was insufflated and the endoscope was slowly withdrawn. FINDINGS: 1. There were two lesions noted in the proximal jejunum, both of which were bolivar-circumferential, mildly ulcerated and with irregular mucosa. 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 a. The lesions were approximately 6 cm apart. b. Cold biopsies were taken and both lesions were tattooed with Gwen ink with a total of 6 mL of ink. c. The surrounding mucosa in the jejunum was completely normal outside of the two mass lesions. 2. Normal duodenum, stomach and esophagus. RECOMMENDATIONS: 1. Surgical consult, which I called today. 2. I would recommend an Infectious Disease consult as this may be small bowel lymphoma or Kaposi's sarcoma. 3. Continue daily Protonix. 4. Full liquid diet today and advance as tolerated. 5. Multivitamin therapy. 6. Await current serologies, which are pending. JOB# [id number] LAURA/NTS
[2017-05-29] MEDS ORDERED: NACL 0.9% 1000 ML 1,000 ML ONE (06:47)
[2017-05-29 07:16] LABS: Hematocrit 23.3 % (35.5-45.6); Hemoglobin 7.7 gm/dl (11.8-15.2); Mean Corpuscular HGB Conc 33 % (32-34); Mean Corpuscular Hemoglobin 26 pg (28-32); Mean Corpuscular Volume 79 fl (84-94); Platelet Count 248 K/mm3 (140-440); Red Blood Count 2.96 M/mm3 (3.65-5.03); Red Cell Distribution Width 24.4 % (13.2-15.2); White Blood Count 4.8 K/mm3 (4.5-11.0)
[2017-05-29 07:49] LABS: Anion Gap 15 mmol/L; BUN/Creatinine Ratio 7.14; Blood Urea Nitrogen 5 mg/dL (9-20); Calcium 7.9 mg/dL (8.4-10.2); Carbon Dioxide 23 mmol/L (22-30); Chloride 102.5 mmol/L (98-107); Glucose 101 mg/dL (75-100); Potassium 3.8 mmol/L (3.6-5.0); Sodium 137 mmol/L (137-145)
[2017-05-29 09:48] LABS: Basophils % (Manual) 0 % (0.0-1.8); Blastocytes % (Manual) 0 %
[2017-05-29 09:49] LABS: Anisocytosis 2+; Diff Status Complete; Hypochromasia 1+; Platelet Estimate Consistent w Auto; Smudge Cells 1+
[2017-05-29] MEDS: THERAGRAN-M Tab PO SCH (09:49)
[2017-05-29] MEDS: PROTONIX PO SCH (09:49)
--- NOTE | 2017-05-29 10:43 | Progress Note ---
Assessment and Plan Assessment and plan: Patient 22-year-old male with past medical history of HIV diagnosed when he was 17 noncompliant with follow-up not taking any antiretrovirals, presents to the ED complaining of lower abdominal pain, anal pain, generalized weakness and fatigue. Patient states symptoms started approximately 1 week prior with anal pain with defecation. Patient denies anal bleeding. Patient denies appreciating anal masses. He states intermittently has a dull pain pelvic area that intermittent no relaxing or worsening factors. He also states he's been having generalized shortness of breath with exertion and generalized fatigue. Patient noted to have maroon stools on 05/26/17 w/ generalized malaise. Found to have severe anemia. Has received PRBCs x 4 and feels better. No GI bleed today. No chest pain, SOB, fevers, chills, cough, N/V. Has hx of HIV of unknown severity. * Acute GI bleed. Initial hemoglobin was 2.8. Now 7.3 after 8 units PRBC. S/P angiogram with vascular with no significant findings to support Anemia. endoscopy in 05/28/17 Reveals "2 lesions in the proximal jejunum, both bolivar- circumferential, mildly ulcerated, and with irregular mucosa Lesions approximately 6cm apart- Cold bx taken, and both tattooed with Gwen Ink (6ml total)- Surrounding mucosa completely normal, Normal duodenum, stomach, and esophagus" Follow pathology. Will monitor patient one additional day to ensure stability of H/H. patient understands he must follow with GI and also with ID or [facility] for HIV treatment. Pathololgy still pending. * Acute on chronic Anemia due to acute blood loss. GI following, s/p 8units PRBC * HIV. He is noncompliant. To follow as an outpatient. Counselling provided * Hyponatremia- Monitor * Moderate Protein Calorie malnutrition. Hospital Nursing Assistant consult * DVT prophylaxis with SCDs only because of acute bleed * Full CODE STATUS * Plan discussed in detail, advised to await pathology report. History Interval history: Patient seen and examined, in no acute distress. Anxious to go home. No further bleeding noted today. Hospitalist Physical - Physical exam Narrative exam: VITAL SIGNS: Reviewed. GENERAL: The patient appeared cachectic. And normally developed. Vital signs as documented. HEAD: No signs of head trauma. EYES: Pupils are equal. Extraocular motions intact. EARS: Hearing grossly intact. MOUTH: Oropharynx is normal. NECK: No adenopathy, no JVD. CHEST: Chest with clear breath sounds bilaterally. No wheezes, rales, or rhonchi. CARDIAC: Regular rate and rhythm. S1 and S2, without murmurs, gallops, or rubs. VASCULAR: No Edema. Peripheral pulses normal and equal in all extremities. ABDOMEN: Soft, without detectable tenderness. No sign of distention. No rebound or guarding, and no masses palpated. Bowel Sounds normal. MUSCULOSKELETAL: Good range of motion of all major joints. Extremities without clubbing, cyanosis or edema. NEUROLOGIC EXAM: Alert and oriented x 3. No focal sensory or strength deficits. Speech normal. Follows commands. PSYCHIATRIC: Mood normal. SKIN: No rash or lesions. - Constitutional Vitals: Temp Pulse Resp BP Pulse Ox 98.0 F 91 H 18 111/68 100 05/29/17 07:50 05/29/17 07:50 05/29/17 07:50 05/29/17 07:50 05/29/17 07:50 General appearance: Present: no acute distress, well-nourished Results - Labs CBC & Chem 7: 05/29/17 06:39 05/29/17 06:39 Labs: Laboratory Last Values WBC 4.8 K/mm3 (4.5-11.0) 05/29/17 06:39 RBC 2.96 M/mm3 (3.65-5.03) L 05/29/17 06:39 Hgb 7.7 gm/dl (11.8-15.2) L 05/29/17 06:39 Hct 23.3 % (35.5-45.6) L 05/29/17 06:39 MCV 79 fl (84-94) L 05/29/17 06:39 MCH 26 pg (28-32) L 05/29/17 06:39 MCHC 33 % (32-34) 05/29/17 06:39 RDW 24.4 % (13.2-15.2) H 05/29/17 06:39 Plt Count 248 K/mm3 (140-440) 05/29/17 06:39 Add Manual Diff Complete 05/29/17 06:39 Total Counted 100 05/29/17 06:39 Seg Neuts % (Manual) 78.0 % (40.0-70.0) H 05/29/17 06:39 Band Neutrophils % 2.0 % 05/29/17 06:39 Lymphocytes % (Manual) 15.0 % (13.4-35.0) 05/29/17 06:39 Reactive Lymphs % (Man) 0 % 05/29/17 06:39 Monocytes % (Manual) 4.0 % (0.0-7.3) 05/29/17 06:39 Eosinophils % (Manual) 1.0 % (0.0-4.3) 05/29/17 06:39 Basophils % (Manual) 0 % (0.0-1.8) 05/29/17 06:39 Metamyelocytes % 0 % 05/29/17 06:39 Myelocytes % 0 % 05/29/17 06:39 Promyelocytes % 0 % 05/29/17 06:39 Blast Cells % 0 % 05/29/17 06:39 Nucleated RBC % 2.0 % (0.0-0.9) H 05/29/17 06:39 Seg Neutrophils # Man 3.7 K/mm3 (1.8-7.7) 05/29/17 06:39 Band Neutrophils # 0.1 K/mm3 05/29/17 06:39 Lymphocytes # (Manual) 0.7 K/mm3 (1.2-5.4) L 05/29/17 06:39 Abs React Lymphs (Man) 0.0 K/mm3 05/29/17 06:39 Monocytes # (Manual) 0.2 K/mm3 (0.0-0.8) 05/29/17 06:39 Eosinophils # (Manual) 0.0 K/mm3 (0.0-0.4) 05/29/17 06:39 Basophils # (Manual) 0.0 K/mm3 (0.0-0.1) 05/29/17 06:39 Metamyelocytes # 0.0 K/mm3 05/29/17 06:39 Myelocytes # 0.0 K/mm3 05/29/17 06:39 Promyelocytes # 0.0 K/mm3 05/29/17 06:39 Blast Cells # 0.0 K/mm3 05/29/17 06:39 WBC Morphology Not Reportable 05/29/17 06:39 Hypersegmented Neuts Not Reportable 05/29/17 06:39 Hyposegmented Neuts Not Reportable 05/29/17 06:39 Hypogranular Neuts Not Reportable 05/29/17 06:39 Smudge Cells 1+ 05/29/17 06:39 Toxic Granulation Not Reportable 05/29/17 06:39 Toxic Vacuolation Not Reportable 05/29/17 06:39 Dohle Bodies Not Reportable 05/29/17 06:39 Pelger-Huet Anomaly Not Reportable 05/29/17 06:39 Cecelia Rods Not Reportable 05/29/17 06:39 Platelet Estimate Consistent w auto 05/29/17 06:39 Clumped Platelets Not Reportable 05/29/17 06:39 Plt Clumps, EDTA Not Reportable 05/29/17 06:39 Large Platelets Not Reportable 05/29/17 06:39 Giant Platelets Not Reportable 05/29/17 06:39 Platelet Satelliting Not Reportable 05/29/17 06:39 Plt Morphology Comment Not Reportable 05/29/17 06:39 RBC Morphology Not Reportable 05/29/17 06:39 Dimorphic RBCs Not Reportable 05/29/17 06:39 Polychromasia Not Reportable 05/29/17 06:39 Hypochromasia 1+ 05/29/17 06:39 Poikilocytosis Not Reportable 05/29/17 06:39 Anisocytosis 2+ 05/29/17 06:39 Microcytosis Not Reportable 05/29/17 06:39 Macrocytosis Not Reportable 05/29/17 06:39 Spherocytes Not Reportable 05/29/17 06:39 Pappenheimer Bodies Not Reportable 05/29/17 06:39 Sickle Cells Not Reportable 05/29/17 06:39 Target Cells Not Reportable 05/29/17 06:39 Tear Drop Cells Not Reportable 05/29/17 06:39 Ovalocytes Not Reportable 05/29/17 06:39 Helmet Cells Not Reportable 05/29/17 06:39 [place] Bodies Not Reportable 05/29/17 06:39 [place] Rings Not Reportable 05/29/17 06:39 [place] Cells Not Reportable 05/29/17 06:39 Bite Cells Not Reportable 05/29/17 06:39 Crenated Cell Not Reportable 05/29/17 06:39 Elliptocytes Not Reportable 05/29/17 06:39 Acanthocytes (Spur) Not Reportable 05/29/17 06:39 Rouleaux Not Reportable 05/29/17 06:39 Hemoglobin C Crystals Not Reportable 05/29/17 06:39 Schistocytes Not Reportable 05/29/17 06:39 Malaria parasites Not Reportable 05/29/17 06:39 [place] Bodies Not Reportable 05/29/17 06:39 Hem Pathologist Commnt No 05/29/17 06:39 PT 14.9 Sec. (12.2-14.9) 05/26/17 16:23 INR 1.11 (0.87-1.13) 05/26/17 16:23 APTT 28.1 Sec. (24.2-36.6) 05/26/17 16:23 Sodium 137 mmol/L (137-145) D 05/29/17 06:39 Potassium 3.8 mmol/L (3.6-5.0) 05/29/17 06:39 Chloride 102.5 mmol/L (98-107) 05/29/17 06:39 Carbon Dioxide 23 mmol/L (22-30) 05/29/17 06:39 Anion Gap 15 mmol/L 05/29/17 06:39 BUN 5 mg/dL (9-20) L 05/29/17 06:39 Creatinine 0.7 mg/dL (0.8-1.5) L 05/29/17 06:39 Estimated GFR > 60 ml/min 05/29/17 06:39 BUN/Creatinine Ratio 7.14 % 05/29/17 06:39 Glucose 101 mg/dL (75-100) H 05/29/17 06:39 Calcium 7.9 mg/dL (8.4-10.2) L 05/29/17 06:39 Total Bilirubin 0.70 mg/dL (0.1-1.2) 05/28/17 03:59 AST 19 units/L (5-40) 05/28/17 03:59 ALT 10 units/L (7-56) 05/28/17 03:59 Alkaline Phosphatase 46 units/L (35-129) 05/28/17 03:59 Lactate Dehydrogenase 141 units/L (91-180) 05/27/17 20:00 Total Protein 8.3 g/dL (6.3-8.2) H 05/28/17 03:59 Albumin 2.1 g/dL (3.9-5) L 05/28/17 03:59 Albumin/Globulin Ratio 0.3 % 05/28/17 03:59 Urine Color Yellow (Yellow) 05/26/17 19:47 Urine Turbidity Clear (Clear) 05/26/17 19:47 Urine pH 5.0 (5.0-7.0) 05/26/17 19:47 Ur Specific [place] 1.035 (1.003-1.030) H 05/26/17 19:47 Urine Protein <15 mg/dl mg/dL (Negative) 05/26/17 19:47 Urine Glucose (UA) Neg mg/dL (Negative) 05/26/17 19:47 Urine Ketones Neg mg/dL (Negative) 05/26/17 19:47 Urine Blood Neg (Negative) 05/26/17 19:47 Urine Nitrite Neg (Negative) 05/26/17 19:47 Urine Bilirubin Neg (Negative) 05/26/17 19:47 Urine Urobilinogen < 2.0 mg/dL (<2.0) 05/26/17 19:47 Ur Leukocyte Esterase Neg (Negative) 05/26/17 19:47 Urine WBC (Auto) < 1.0 /HPF (0.0-6.0) 05/26/17 19:47 Urine RBC (Auto) 4.0 /HPF (0.0-6.0) 05/26/17 19:47 U Epithel Cells (Auto) < 1.0 /HPF (0-13.0) 05/26/17 19:47 Urine Bacteria (Auto) 1+ /HPF (Negative) 05/26/17 19:47 Urine Mucus Few /HPF 05/26/17 19:47 RPR Nonreactive (Nonreactive) 05/27/17 04:46 Hepatitis C Antibody Non-reactive (NonReactive) 05/29/17 06:39 Blood Type O POSITIVE 05/26/17 16:05 Antibody Screen TNR 05/26/17 16:05 NESSA Antibody Screen Negative 05/26/17 16:05 Crossmatch See Detail 05/26/17 16:05
--- NOTE | 2017-05-29 11:09 | Gastroenterology Progress Note ---
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 Tolerating diet well. Denies signs of active bleeding overnight or this am. Objective - Constitutional Vitals: Temp Pulse Resp BP Pulse Ox 98.0 F 91 H 18 111/68 100 05/29/17 07:50 05/29/17 07:50 05/29/17 07:50 05/29/17 07:50 05/29/17 07:50 General appearance: no acute distress - EENT Eyes: PERRL, EOM intact ENT: hearing intact - Neck Neck: supple, normal ROM - Respiratory Respiratory: bilateral: CTA - Cardiovascular Rhythm: regular Heart Sounds: Present: S1 & S2 - Extremities Extremities: No edema - Gastrointestinal General gastrointestinal: Present: soft, non-tender, non-distended, normal bowel sounds - Integumentary Integumentary: Present: warm, dry - Neurologic Neurological: alert and oriented x3 - Psychiatric Psychiatric: appropriate mood/affect, cooperative - Labs CBC & Chem 7: 05/29/17 06:39 05/29/17 06:39 Labs: Laboratory Results - last 24 hr 05/29/17 05/29/17 05/29/17 06:39 06:39 06:39 WBC 4.8 RBC 2.96 L Hgb 7.7 L Hct 23.3 L MCV 79 L MCH 26 L MCHC 33 RDW 24.4 H Plt Count 248 Add Manual Diff Complete Total Counted 100 Seg Neuts % (Manual) 78.0 H Band Neutrophils % 2.0 Lymphocytes % (Manual) 15.0 Reactive Lymphs % (Man) 0 Monocytes % (Manual) 4.0 Eosinophils % (Manual) 1.0 Basophils % (Manual) 0 Metamyelocytes % 0 Myelocytes % 0 Promyelocytes % 0 Blast Cells % 0 Nucleated RBC % 2.0 H Seg Neutrophils # Man 3.7 Band Neutrophils # 0.1 Lymphocytes # (Manual) 0.7 L Abs React Lymphs (Man) 0.0 Monocytes # (Manual) 0.2 Eosinophils # (Manual) 0.0 Basophils # (Manual) 0.0 Metamyelocytes # 0.0 Myelocytes # 0.0 Promyelocytes # 0.0 Blast Cells # 0.0 WBC Morphology Not Reportable Hypersegmented Neuts Not Reportable Hyposegmented Neuts Not Reportable Hypogranular Neuts Not Reportable Smudge Cells 1+ Toxic Granulation Not Reportable Toxic Vacuolation Not Reportable Dohle Bodies Not Reportable Pelger-Huet Anomaly Not Reportable Cecelia Rods Not Reportable Platelet Estimate Consistent w auto Clumped Platelets Not Reportable Plt Clumps, EDTA Not Reportable Large Platelets Not Reportable Giant Platelets Not Reportable Platelet Satelliting Not Reportable Plt Morphology Comment Not Reportable RBC Morphology Not Reportable Dimorphic RBCs Not Reportable Polychromasia Not Reportable Hypochromasia 1+ Poikilocytosis Not Reportable Anisocytosis 2+ Microcytosis Not Reportable Macrocytosis Not Reportable Spherocytes Not Reportable Pappenheimer Bodies Not Reportable Sickle Cells Not Reportable Target Cells Not Reportable Tear Drop Cells Not Reportable Ovalocytes Not Reportable Helmet Cells Not Reportable La[place] Bodies Not Reportable [place] Rings Not Reportable [place] Cells Not Reportable Bite Cells Not Reportable Crenated Cell Not Reportable Elliptocytes Not Reportable Acanthocytes (Spur) Not Reportable Rouleaux Not Reportable Hemoglobin C Crystals Not Reportable Schistocytes Not Reportable Malaria parasites Not Reportable [place] Bodies Not Reportable Hem Pathologist Commnt No Sodium 137 D Potassium 3.8 Chloride 102.5 Carbon Dioxide 23 Anion Gap 15 BUN 5 L Creatinine 0.7 L Estimated GFR > 60 BUN/Creatinine Ratio 7.14 Glucose 101 H Calcium 7.9 L Hepatitis C Antibody Non-reactive
[2017-05-29 11:50] LABS: Iron 12 ug/dL (49-181); Total Iron Binding Capacity 267 mcg/dL (250-450)
--- NOTE | 2017-05-29 11:55 | Progress Note ---
Subjective Patient Reports: Positive: no new complaints, feels better, flatus, bowel movement Narrative: surgicslly Pt doing well , Talked to Dr Verdugo , Pt can go home .will see PRN Objective Vital Signs - 12hr 05/29/17 05/29/17 05/29/17 00:00 02:23 02:53 Temperature 98.1 F Pulse Rate [ 100 H From Monitor] Respiratory 18 20 20 Rate Blood Pressure 111/62 [Right Arm] O2 Sat by Pulse 100 Oximetry 05/29/17 05/29/17 04:40 07:50 Temperature 98.5 F 98.0 F Pulse Rate [ 87 91 H From Monitor] Respiratory 18 18 Rate Blood Pressure 115/60 111/68 [Right Arm] O2 Sat by Pulse 100 100 Oximetry - Labs 05/29/17 06:39 05/29/17 06:39 Diabetes panel 05/29/17 Range/Units 06:39 Sodium 137 D (137-145) mmol/L Potassium 3.8 (3.6-5.0) mmol/L Chloride 102.5 (98-107) mmol/L Carbon Dioxide 23 (22-30) mmol/L BUN 5 L (9-20) mg/dL Creatinine 0.7 L (0.8-1.5) mg/dL Glucose 101 H (75-100) mg/dL Calcium 7.9 L (8.4-10.2) mg/dL Calcium panel 05/29/17 Range/Units 06:39 Calcium 7.9 L (8.4-10.2) mg/dL Pituitary panel 05/29/17 Range/Units 06:39 Sodium 137 D (137-145) mmol/L Potassium 3.8 (3.6-5.0) mmol/L Chloride 102.5 (98-107) mmol/L Carbon Dioxide 23 (22-30) mmol/L BUN 5 L (9-20) mg/dL Creatinine 0.7 L (0.8-1.5) mg/dL Glucose 101 H (75-100) mg/dL Calcium 7.9 L (8.4-10.2) mg/dL Adrenal panel 05/29/17 Range/Units 06:39 Sodium 137 D (137-145) mmol/L Potassium 3.8 (3.6-5.0) mmol/L Chloride 102.5 (98-107) mmol/L Carbon Dioxide 23 (22-30) mmol/L BUN 5 L (9-20) mg/dL Creatinine 0.7 L (0.8-1.5) mg/dL Glucose 101 H (75-100) mg/dL Calcium 7.9 L (8.4-10.2) mg/dL
--- NOTE | 2017-05-29 11:58 | Progress Note ---
Assessment and Plan [facility] Acute blood loss anemia, versus chronic HIV. Needs outpatient follow-up. No active signs of pulmonary infection at this time. Mesenteric/perirectal LAD Hyponatremia Recommendations GI follow-up regarding outpatient care. Infectious diseases outpatient follow-up for HIV Check CD4 results when available. Continue incentive spirometry and DVT prophylaxis measures Will sign off unless otherwise needed. Subjective Date of service: 05/29/17 Principal diagnosis: Acute GI Bleed Interval history: No respiratory complaints. No events overnight. No bleeding reported. States he had a normal bowel movement this morning Objective Vital Signs - 12hr 05/29/17 05/29/17 05/29/17 00:00 02:23 02:53 Temperature 98.1 F Pulse Rate [ 100 H From Monitor] Respiratory 18 20 20 Rate Blood Pressure 111/62 [Right Arm] O2 Sat by Pulse 100 Oximetry 05/29/17 05/29/17 04:40 07:50 Temperature 98.5 F 98.0 F Pulse Rate [ 87 91 H From Monitor] Respiratory 18 18 Rate Blood Pressure 115/60 111/68 [Right Arm] O2 Sat by Pulse 100 100 Oximetry Constitutional: no acute distress, alert Eyes: non-icteric ENT: oropharynx moist, other (no oral thrush) Neck: supple Effort: normal Ascultation: Bilateral: clear Cardiovascular: regular rate and rhythm Gastrointestinal: normoactive bowel sounds, soft, non-tender, non-distended Integumentary: normal Extremities: no cyanosis, no edema, pink and warm Neurologic: normal mental status, non-focal exam, pupils equal and round, CN II- XII normal Psychiatric: mood appropriate, affect normal CBC and BMP: 05/29/17 06:39 05/29/17 06:39 ABG, PT/INR, D-dimer: PT/INR, D-dimer PT 14.9 Sec. (12.2-14.9) 05/26/17 16:23 INR 1.11 (0.87-1.13) 05/26/17 16:23 Abnormal lab findings: Abnormal Labs 05/27/17 05/27/17 05/28/17 04:46 04:46 03:59 WBC 4.4 L RBC 1.84 L 2.84 L Hgb 4.3 L* 7.3 L D Hct 13.1 L* 22.1 L D MCV 72 L D 78 L D MCH 23 L 26 L RDW 30.3 H 23.8 H Seg Neuts % (Manual) 77.0 H Nucleated RBC % 1.0 H 11.0 H Lymphocytes # (Manual) 1.1 L 1.0 L Sodium 136 L BUN Creatinine 0.6 L Glucose 108 H Calcium 7.7 L Iron Total Protein Albumin 2.0 L 05/28/17 05/29/17 05/29/17 03:59 06:32 06:39 WBC RBC 2.96 L Hgb 7.7 L Hct 23.3 L MCV 79 L MCH 26 L RDW 24.4 H Seg Neuts % (Manual) 78.0 H Nucleated RBC % 2.0 H Lymphocytes # (Manual) 0.7 L Sodium 129 L D BUN Creatinine 0.6 L Glucose Calcium 7.9 L Iron 12 L Total Protein 8.3 H Albumin 2.1 L 05/29/17 06:39 WBC RBC Hgb Hct MCV MCH RDW Seg Neuts % (Manual) Nucleated RBC % Lymphocytes # (Manual) Sodium BUN 5 L Creatinine 0.7 L Glucose 101 H Calcium 7.9 L Iron Total Protein Albumin
[2017-05-29 12:34] VITALS: BP 107/60
--- NOTE | 2017-05-30 07:19 | Discharge Summary ---
Providers - Providers Date of Admission: 05/26/17 23:54 Date of discharge: 05/29/17 Attending physician: JERRI BHATT MD 05/27/17 00:35 Consult to Physician [CONS] Stat Consulting Provider: ENZO GONZALES Reason For Exam: ICU Admission Place consult to:: Dr Perez Notified:: yes Phone number called:: [phone] Was contact made?: Yes If yes, spoke with:: answering service Time called:: 10:34 05/27/17 07:54 Consult to Physician [CONS] Routine Consulting Provider: LULA DUMONT Reason For Exam: GI bleed Place consult to:: Dr. Dumont Notified:: yes Comment:: saw patient 05/26/17 05/28/17 11:33 Consult to Physician [CONS] Routine Consulting Provider: JANIS LUCAS Reason For Exam: small bowel lesion Place consult to:: Dr Luacs Notified:: yes Was contact made?: Yes Comment:: Pt seen on 05/27/[address] Lucas. See notes Primary care physician: MULTINEEDLE SHIRRER Hospitalization Reason for admission: symptomatic anemia Condition: Stable Hospital course: Patient 22-year-old male with past medical history of HIV diagnosed when he was 17 noncompliant with follow-up not taking any antiretrovirals, presents to the ED complaining of lower abdominal pain, anal pain, generalized weakness and fatigue. Patient states symptoms started approximately 1 week prior with anal pain with defecation. Patient denies anal bleeding. Patient denies appreciating anal masses. He states intermittently has a dull pain pelvic area that intermittent no relaxing or worsening factors. He also states he's been having generalized shortness of breath with exertion and generalized fatigue. Patient noted to have maroon stools on 05/26/17 w/ generalized malaise. Found to have severe anemia. Has received PRBCs x 4 and feels better. No GI bleed today. No chest pain, SOB, fevers, chills, cough, N/V. Has hx of HIV of unknown severity. * Acute GI bleed. Initial hemoglobin was 2.8. Now 7.3 after 8 units PRBC. S/P angiogram with vascular with no significant findings to support Anemia. endoscopy in 05/28/17 Reveals "2 lesions in the proximal jejunum, both bolivar- circumferential, mildly ulcerated, and with irregular mucosa Lesions approximately 6cm apart- Cold bx taken, and both tattooed with Gwen Ink (6ml total)- Surrounding mucosa completely normal, Normal duodenum, stomach, and esophagus" Follow pathology. Will monitor patient one additional day to ensure stability of H/H. patient understands he must follow with GI and also with ID or [facility] for HIV treatment. Pathololgy still pending. * Acute on chronic Anemia due to acute blood loss. GI following, s/p 8units PRBC * HIV. He is noncompliant. To follow as an outpatient. Counselling provided * Hyponatremia- Monitor * Moderate Protein Calorie malnutrition. Psychiatric Nurse consult * DVT prophylaxis with SCDs only because of acute bleed * Full CODE STATUS * Plan discussed in detail, advised to await pathology report. Patient unfortunately left against medical advise, despite multiple warnings and discussion of associated risk and his high risk for rebleed and possible but not limited to fatal events. He verbalized understanding. He did not wait for any prescriptions Disposition: DC-07 LEFT AGAINST MED ADVICE Time spent for discharge: 35 Core Measure Documentation - Palliative Care Palliative Care/ Comfort Measures: Not Applicable - Core Measures Any of the following diagnoses?: none - VTE Discharge Requirements Deep Vein Thrombosis/Pulmonary Embolism Present on Admission: No Exam - Physical Exam Narrative exam: VITAL SIGNS: Reviewed. GENERAL: The patient appeared cachectic. And normally developed. Vital signs as documented. HEAD: No signs of head trauma. EYES: Pupils are equal. Extraocular motions intact. EARS: Hearing grossly intact. MOUTH: Oropharynx is normal. NECK: No adenopathy, no JVD. CHEST: Chest with clear breath sounds bilaterally. No wheezes, rales, or rhonchi. CARDIAC: Regular rate and rhythm. S1 and S2, without murmurs, gallops, or rubs. VASCULAR: No Edema. Peripheral pulses normal and equal in all extremities. ABDOMEN: Soft, without detectable tenderness. No sign of distention. No rebound or guarding, and no masses palpated. Bowel Sounds normal. MUSCULOSKELETAL: Good range of motion of all major joints. Extremities without clubbing, cyanosis or edema. NEUROLOGIC EXAM: Alert and oriented x 3. No focal sensory or strength deficits. Speech normal. Follows commands. PSYCHIATRIC: Mood normal. SKIN: No rash or lesions. - Constitutional Vitals: Temp Pulse Resp BP Pulse Ox 98.2 F 107 H 18 107/60 100 05/29/17 12:00 05/29/17 12:00 05/29/17 12:00 05/29/17 12:00 05/29/17 12:00 Plan Follow up with: PRIMARY CARE, [Primary Care Provider] - 3-5 Days Forms: AMA Form
== END 2017-05-29 16:45 | disposition left against medical advice (07) | DRG 377 ==
LOC: ED 13:50 → CC1 23:54 → 4A 05-28 18:45
PROVIDERS: ADMIT Internal Medicine; ATTEND Internal Medicine
PROC: 30233N1 Transfusion of Nonautologous Red Blood Cells into Peripheral Vein, Percutaneous Approach (ICD-10-PCS; 2017-05-26)
PROC: 30233L1 Transfusion of Nonautologous Fresh Plasma into Peripheral Vein, Percutaneous Approach (ICD-10-PCS; 2017-05-26)
PROC: 30233K1 Transfusion of Nonautologous Frozen Plasma into Peripheral Vein, Percutaneous Approach (ICD-10-PCS; 2017-05-26)
PROC: B4151ZZ Fluoroscopy of Inferior Mesenteric Artery using Low Osmolar Contrast (ICD-10-PCS; 2017-05-27)
PROC: B41J1ZZ Fluoroscopy of Other Lower Arteries using Low Osmolar Contrast (ICD-10-PCS; 2017-05-27)
PROC: B4141ZZ Fluoroscopy of Superior Mesenteric Artery using Low Osmolar Contrast (ICD-10-PCS; 2017-05-27)
PROC: 0DBA8ZX Excision of Jejunum, Via Natural or Artificial Opening Endoscopic, Diagnostic (ICD-10-PCS; principal; 2017-05-28)
DX: K92.2 Gastrointestinal hemorrhage, unspecified (principal); B20 Human immunodeficiency virus [HIV] disease; D62 Acute posthemorrhagic anemia; E87.1 Hypo-osmolality and hyponatremia; E44.0 Moderate protein-calorie malnutrition; K63.9 Disease of intestine, unspecified; Z91.19 Patient's noncompliance with other medical treatment and regimen; K21.9 Gastro-esophageal reflux disease without esophagitis; Z72.89 Other problems related to lifestyle; F17.210 Nicotine dependence, cigarettes, uncomplicated; Z68.23 Body mass index [BMI] 23.0-23.9, adult; Z53.21 Procedure and treatment not carried out due to patient leaving prior to being seen by health care provider
CPT/HCPCS: 36245; 36415; 74177; 74178; 75726; 80048; 80053; 81001; 82024; 83550; 83615; 85007; 85025; 85610; 85730; 86592; 86803; 86850; 86900; 86901; 86920; 88305; 88312; 88342; 93005; 93010; 96361; 96374; 96375; C1760; C1769; C9113; J0690; J1170; J1642; J1644; J2250; J2270; J2405; J2704; J3010; J3246; J7030; J7040; J7042; P9016; P9017; Q9967

== ENCOUNTER 2017-07-19 11:56 | Emergency (ER) | payer SELFPAY ==
[2017-07-19 12:08] VITALS: BP 95/52
[2017-07-19 12:32] LABS: Basophils % (Auto) 0.3 % (0.0-1.8); Eosinophils % (Auto) 0.1 % (0.0-4.3); Hematocrit 21.4 % (35.5-45.6); Hemoglobin 6.7 gm/dl (11.8-15.2); Mean Corpuscular HGB Conc 31 % (32-34); Platelet Count 344 K/mm3 (140-440); White Blood Count 8.9 K/mm3 (4.5-11.0)
[2017-07-19 12:41] LABS: Mean Corpuscular Hemoglobin 21 pg (28-32); Mean Corpuscular Volume 67 fl (84-94)
[2017-07-19 12:42] LABS: Red Cell Distribution Width 24.4 % (13.2-15.2)
[2017-07-19 12:49] LABS: Anion Gap 16 mmol/L; BUN/Creatinine Ratio 37.14; Blood Urea Nitrogen 26 mg/dL (9-20); Calcium 8.7 mg/dL (8.4-10.2); Carbon Dioxide 23 mmol/L (22-30); Glucose 104 mg/dL (75-100); Potassium 4.5 mmol/L (3.6-5.0); Sodium 130 mmol/L (137-145)
[2017-07-19 16:44] LABS: Bilirubin,Urine NEG (Negative); Blood,Urine NEG (Negative); Ketones,Urine NEG (Negative); Leukocyte Esterase,Urine NEG (Negative); Mucus,Urine FEW /HPF; Nitrite,Urine NEG (Negative); Protein,Urine <15 mg/dL mg/dL (Negative); Urobilinogen,Urine < 2.0 mg/dL (<2.0)
== END 2017-07-19 16:01 | disposition left against medical advice (07) ==
LOC: ED 11:56
DX: R10.9 Unspecified abdominal pain (principal); R11.2 Nausea with vomiting, unspecified; R19.7 Diarrhea, unspecified; Z53.21 Procedure and treatment not carried out due to patient leaving prior to being seen by health care provider
CPT/HCPCS: 36415; 80048; 81001; 85025